=== PATIENT | female | born 1945 | race Caucasian/White ===

== ENCOUNTER → 2023-08-29 15:05 | Outpatient (REF) | payer MEDICARE, OTHER, SELFPAY | LOC: RAD 15:05 | PROVIDERS: ATTENDING PHYSICIAN Nurse Practitioner; FAMILY PHYSICIAN Family Medicine | DX: R35.0 Frequency of micturition (principal) | CPT/HCPCS: 76770; 76856 ==

== ENCOUNTER → 2023-08-31 10:23 | Outpatient (REF) | payer MEDICARE, OTHER, SELFPAY | LOC: DHCBS MAIN 10:23 | PROVIDERS: ATTENDING PHYSICIAN Internal Medicine Cardiovascular Disease; FAMILY PHYSICIAN Family Medicine | DX: I35.0 Nonrheumatic aortic (valve) stenosis (principal) | CPT/HCPCS: 93306 ==

== ENCOUNTER → 2024-02-06 10:06 | Outpatient (REF) | payer MEDICARE, OTHER, SELFPAY | LOC: RAD 10:06 | PROVIDERS: ATTENDING PHYSICIAN Physician Assistant Surgical; FAMILY PHYSICIAN Family Medicine; REFERRING PHYSICIAN Specialist | DX: M25.562 Pain in left knee (principal); Z96.652 Presence of left artificial knee joint | CPT/HCPCS: 78315; A9503 ==

== ENCOUNTER 2024-04-09 16:30 | Emergency (ER) | payer MEDICARE, OTHER, SELFPAY ==
[2024-04-09 16:39] VITALS: BP 112/92
--- NOTE | 2024-04-09 16:39 | ED.PDOC.TRB ---
ED Provider Triage
-
Patient seen by provider in Triage?: Seen in Triage
Attestation: A medical screening examination has been initiated by a qualified medical provider. Based on the assessment performed at this time, it has been determined that an emergent medical condition may exist and the patient has been informed
that further medical evaluation and possible additional diagnostic testing may be needed.
HPI: 78-year-old female with history of aortic stenosis and noncritical coronary artery disease presents for evaluation of chest pain that has been ongoing for the past 1 to 2 months. Reports intermittent episodes of exertional chest pain as well
as nocturnal chest pain that typically resolve with nitro use. Last had a cardiac cath in 2022 showing noncritical CAD and moderate to severe . States that her exertional dyspnea has not worsened since last year. No fevers or chills
GENERAL: Alert , in no apparent distress
EYE: No visual abnormalities.
NECK: Trachea midline
ENT: No visible abnormalities.
LUNGS: No acute respiratory distress
NEUROLOGICAL: Alert and oriented
SKIN: Skin intact. No visible changes.
MUSCULOSKELETAL: Moving extremities normally
PSYCH: Normal and appropriate interaction.
Assessment: Concern for symptoms related to coronary artery disease as opposed to a assess her symptoms have not worsened as far as dyspnea on exertion is concerned. EKG appears to be nonischemic. Will obtain cardiac labs and chest x-ray
This is a medical evaluation conducted in person to initiate diagnostic evaluation and provide initial therapeutics. Please see further documentation by the treating clinician.
[2024-04-09 16:53] LABS: % Basophils 0.4 % (0-2); % Eosinophils 3.4 % (0-6); % Immature Granulocytes 0.3 % (0-0.5); % Lymphocytes 30.3 % (20.5-51.1); % Monocytes 7.9 % (1.7-9.3); % Neutrophils 57.7 % (42.2-75.2); Absolute Eosinophils 0.3 10^3/uL (0-0.7); Absolute Lymphocytes 2.4 10^3/uL (1.2-3.4); Absolute Monocytes 0.6 10^3/uL (0.1-0.6); Absolute Neutrophils 4.6 10^3/uL (1.4-6.5); Hematocrit 32.9 % (37.0-47.0); Hemoglobin 11.4 g/dL (12.0-16.0); Mean Corp Hgb Conc. 34.7 g/dL (33.0-37.0); Mean Corpuscular Hgb 29.2 pg (27.0-31.0); Mean Corpuscular Volume 84.4 fL (81.0-99.0); Mean Platelet Volume 9.4 fL (7.4-10.4); Nucleated Red Blood Cells % 0 %; Platelet Count 240 10^3/uL (130-400); Red Cell Dist. Width 14.6 % (11.5-14.5); White Blood Cell Count 7.9 10^3/uL (4.8-10.8)
[2024-04-09 17:11] LABS: ALT (SGPT) 18 U/L (0-35); AST (SGOT) 26 U/L (14-36); Albumin 4.2 g/dl (3.5-5.0); Alkaline Phosphatase 81 U/L (38-126); Blood Urea Nitrogen 30 mg/dl (7-17); Calcium 9.1 mg/dl (8.4-10.2); Carbon Dioxide 23 mmol/L (22-30); Glucose 128 mg/dl (70-99); Total Bilirubin 0.5 mg/dl (0.2-1.3); Total Protein 6.4 g/dl (6.3-8.2); eGFR 42.35
[2024-04-09 17:17] LABS: Troponin I < 0.012 ng/ml
[2024-04-09 17:19] LABS: Chloride 105 mmol/L (98-107); Potassium 5.1 mmol/L (3.5-5.1); Sodium 141 mmol/L (135-145)
[2024-04-09 17:29] VITALS: BP 148/60
[2024-04-09 18:00] VITALS: BP 146/64
[2024-04-09 18:28] VITALS: BP 149/69
[2024-04-09 19:00] VITALS: BP 159/62
[2024-04-09 20:30] LABS: Troponin I < 0.012 ng/ml
--- NOTE | 2024-04-09 20:32 | ED.GENMED ---
History of Present Illness
General
Chief Complaint: Chest Pain
Source: patient
Time Seen by Provider: 04/09/24 18:11
History of Present Illness
History of Present Illness:
78-year-old female with past medical history of hypertension, hyperlipidemia, insulin-dependent diabetes, mild CAD presenting to the emergency department for evaluation of chest discomfort which has been occurring mostly at nighttime for the last
month, no change in symptoms today but states due to the continuous nature of the symptoms decided to contact her cardiology office but was unable to get an appointment quickly so it was recommended she come to the ER to be further evaluated.
Patient states that she sometimes will take a nitroglycerin and that this will often times help her pain. The pain is described to be mostly substernal, nonradiating, pressure-like with no other associated symptoms. Patient states that sometimes
the pain can last for 30 minutes but always resolves. She does note a history of aortic stenosis which is monitored with echocardiograms and last echocardiogram being earlier this year. Patient has no other concerns at this time and notes that at
present time she is chest pain-free
Past History
Past History
ED Past Medical History: CAD, GERD, HTN, Hypercholesterolemia, IDDM and Other (Kidney stones, Sleep apnea uses CPAP)
ED Past Surgical History: Bowel resection, Cholecystectomy, Gynecological (Tubal ligation, D&C), Orthopedic (Right and left total knee replacement, Left hip replacement), Urological (Lithotripsy) and Other (Cataracts)
Social History
Tobacco: Former smoker
Alcohol: Occasional
Drug: None
Personal:
Living: with family (Grandson)
Employment: Retired
Family History
Family History: Other (Noncontributory)
Review of Systems
Review of Systems
All Other Systems: ROS reviewed and negative except as documented in HPI and ROS
Phy Exam
Physical Exam
Physical Exam:
GENERAL: Alert , in no apparent distress
EYE: clear conjunctiva b/l
HEAD: NCAT
ENT: o/p clr, mmm.
CARDIAC: Regular rate and rhythm, systolic murmur right second intercostal space.
LUNGS: Clear breath sounds bilaterally, no acute respiratory distress, no wheezes/rales/rhonchi
ABDOMEN: Soft, without focal tenderness, no r/g, no cvat
NEUROLOGICAL: Alert and oriented
SKIN: Warm and dry, skin intact.
MUSCULOSKELETAL: No edema, well perfused.
PSYCH: Normal and appropriate interaction.
Scores
Heart Failure Risk
Heart Failure Risk Score: Not Applicable
Heart Score for Chest Pain Patients
STEMI patient?: No
History: Moderately Suspicious
ECG: Nonspecific Repolarization
Age: >/= 65 years
Risk Factors: 1 or 2 Risk Factors
Troponin: </= Normal Limit
Heart Score for Chest Pain Patients: 5
Heart Score Risk: 20.3% MACE over next 6 weeks
Withdrawal Assessment of Alcohol
Withdrawal Assessment Completed?: Not applicable
Course
Orders/Labs/Results
Orders:
Orders
04/09/24 16:32
EKG [Electrocardiogram (*1)] Urgent
Reason for Study: Chest Pain
04/09/24 16:33
EKG- Treatment ONCE
04/09/24 16:40
CR Chest - 2 Views Urgent
Comment:
Reason For Exam: CP/SOB
04/09/24 16:44
Complete Blood Count/With Diff Urgent
Comprehensive Metabolic Panel Urgent
Troponin I Urgent
04/09/24 20:01
Troponin I Urgent
Abnormal Lab Results
04/09/24
16:44
RBC 3.90 L 10^6/uL
(4.20-5.40)
Hgb 11.4 L g/dL
(12.0-16.0)
Hct 32.9 L %
(37.0-47.0)
RDW 14.6 H %
(11.5-14.5)
BUN 30 H mg/dl
(7-17)
Creatinine 1.3 H mg/dL
(0.6-1.0)
Glucose 128 H mg/dl
(70-99)
04/09/24 16:44
04/09/24 16:44
Vital Signs
Initial and Last Documented VS:
Initial Vital Signs
Temp Pulse Resp BP Pulse Ox
97.4 F 79 17 112/92 99
04/09/24 16:39 04/09/24 16:39 04/09/24 16:39 04/09/24 16:39 04/09/24 16:39
Last Documented Vital Signs
Temp Pulse Resp BP Pulse Ox
97.4 F 83 19 140/71 96
04/09/24 16:39 04/09/24 20:39 04/09/24 19:15 04/09/24 20:39 04/09/24 19:15
MDM/Problems Addressed
Differential Diagnosis Includes:
Angina, NSTEMI, minimal concern for a musculoskeletal etiology or GI referred symptoms, other than chest pain patient does not have any other symptoms to suggest PE
MDM/Problems Addressed:
78-year-old female presenting to the emergency department with intermittent chest pain that usually occurs at nighttime, can last up to 30 minutes, resolves either spontaneously or with sublingual nitroglycerin and no other symptoms. Patient
attempted to see her chiropractor assistant but was not able to be seen very quickly and was recommended to come to the ER for further evaluation. At present time she is chest pain-free. Labs are ordered from triage and patient has chronic kidney disease
which is unchanged and a negative troponin. EKG shows a left bundle branch block but this is unchanged from previous. I reviewed patient's echocardiogram which shows some aortic stenosis. She also had a cardiac catheterization done within the
last 2 years which showed 40% occlusion of the left main and mild to moderate disease of the mid LAD and circumflex which was unchanged from her angiogram in 2018.
Chronic conditions affecting care: CAD
*Radiology
Radiology exam reviewed: radiology read reviewed
*Pulse Oximetry
Patient hypoxic: no
*Critical Care Note
Total Time (30-74mins, 75-104mins- exclusive of procedures): Not Applicable
Data Reviewed
Review of Other/Old Records Reveals: Labs, Records and Testing
Source: patient and records
Patient Management
Escalation/DeEscalation of care consider admission/obs:
Patient had a -3-hour troponin. Given her history I did offer her hospital stay for further evaluation, cardiology consultation and testing based off of cardiology recommendations. Patient ultimately preferred to be discharged home and declines
admission. Will notify chest pain hotline to help expedite a close outpatient follow-up visit with cardiology. Patient aware of return precautions to the ER. Stable for discharge home.
ED Attending Note
-
Portions of this chart may have been created with voice recognition software.� Occasional wrong word or��sound alike� substitutions may have occurred due to the inherent limitations of voice recognition software.
Discharge Plan
Departure
Patient Disposition: Home (Routine Discharge)
Date of Disposition: 04/09/24
Time of Disposition: 20:32
Patient with high blood pressure during this ER visit?: Yes
Discharge Problem:
Chest pain
Instructions: Chest Pain DCA Follow Up
Prescriptions:
No Action
Jardiance 10 MG tablet
10 mg PO DAILY
atorvastatin 20 MG tablet
20 mg PO DAILY
trazodone 100 MG tablet
200 mg PO HS
bupropion HCl 300 MG tablet extended release 24 hr
300 mg PO DAILY
ascorbic acid (vitamin C) [Vitamin C] 500 MG tablet
1,000 mg PO DAILY
omeprazole 20 MG capsule,delayed release(DR/EC)
40 mg PO DAILY
Aspirin Low-Strength
81 mg PO DAILY
Creon 36,000-114,000- 180,000 unit capsule,delayed release(DR/EC)
2 cap PO AC
diphenoxylate-atropine 2.5-0.025 mg tablet
1 tab PO QID PRN (Reason: diarrhea)
lorazepam 0.5 mg tablet
0.5 mg PO DAILY PRN (Reason: anxiety)
losartan 25 mg Tablet
25 mg PO DAILY Qty: 30 0RF
metoprolol succinate 25 mg Tablet Extended Release 24 Hr
25 mg PO BID Qty: 60 0RF
Referrals:
Jim Avalos MD [Family Provider] -
Interventions
Interventions:
*Risk Screen - Suicide Last Done: 04/09/24 16:40
*General Assessment Last Done: 04/09/24 16:40
*Neglect/Abuse Screening Last Done: 04/09/24 16:40
ED- Fall Risk Assessment Last Done: 04/09/24 17:43
*ED COVID-19 Vaccine History Last Done: 04/09/24 16:40
*Nursing Disposition Last Done: 04/09/24 20:39
ED- Cardiac Assessment Last Done: 04/09/24 17:43
Discharge Date and Time
Discharge Date/Time: 04/09/24 20:40
Print Language: DUTCH
[2024-04-09 20:39] VITALS: BP 140/71
== END 2024-04-09 20:40 | disposition home or self-care (01) ==
LOC: EMR 16:30
PROVIDERS: Physician Assistant; Physician Assistant Medical; EMERGENCY PHYSICIAN Emergency Medicine; FAMILY PHYSICIAN Family Medicine
DX: R07.89 Other chest pain (principal); E11.22 Type 2 diabetes mellitus with diabetic chronic kidney disease; I12.9 Hypertensive chronic kidney disease with stage 1 through stage 4 chronic kidney disease, or unspecified chronic kidney disease; N18.9 Chronic kidney disease, unspecified; E78.00 Pure hypercholesterolemia, unspecified; I25.10 Atherosclerotic heart disease of native coronary artery without angina pectoris; Z87.891 Personal history of nicotine dependence; Z79.4 Long term (current) use of insulin; K21.9 Gastro-esophageal reflux disease without esophagitis; G47.30 Sleep apnea, unspecified
CPT/HCPCS: 99285; 71046; 80053; 84484; 85025; 93005

== ENCOUNTER 2024-04-17 01:15 | Inpatient (IN) | payer MEDICARE, OTHER, SELFPAY ==
[2024-04-16 22:41] VITALS: BP 181/164
[2024-04-16 22:53] VITALS: BP 187/98
[2024-04-16 23:02] VITALS: BP 161/117
[2024-04-16 23:05] VITALS: BP 137/80
[2024-04-16 23:07] LABS: % Basophils 0.4 % (0-2); % Eosinophils 3.2 % (0-6); % Immature Granulocytes 0.5 % (0-0.5); % Lymphocytes 37.2 % (20.5-51.1); % Monocytes 7.7 % (1.7-9.3); Absolute Eosinophils 0.3 10^3/uL (0-0.7); Absolute Lymphocytes 3.1 10^3/uL (1.2-3.4); Absolute Monocytes 0.6 10^3/uL (0.1-0.6); Absolute Neutrophils 4.2 10^3/uL (1.4-6.5); Hemoglobin 12.8 g/dL (12.0-16.0); Mean Corp Hgb Conc. 34.6 g/dL (33.0-37.0); Mean Corpuscular Hgb 28.9 pg (27.0-31.0); Mean Corpuscular Volume 83.5 fL (81.0-99.0); Mean Platelet Volume 9.7 fL (7.4-10.4); Nucleated Red Blood Cells % 0 %; Platelet Count 287 10^3/uL (130-400); Red Blood Cell Count 4.43 10^6/uL (4.20-5.40); Red Cell Dist. Width 14.1 % (11.5-14.5); White Blood Cell Count 8.2 10^3/uL (4.8-10.8)
[2024-04-16 23:15] VITALS: BP 157/67
[2024-04-16 23:15] LABS: INR 1.06; PT 13.6 Sec (11.4-14.6)
[2024-04-16 23:21] VITALS: BP 164/91
[2024-04-16 23:25] LABS: ALT (SGPT) 18 U/L (0-35); AST (SGOT) 28 U/L (14-36); Albumin 4.7 g/dl (3.5-5.0); Alkaline Phosphatase 140 U/L (38-126); Blood Urea Nitrogen 33 mg/dl (7-17); Calcium 9.6 mg/dl (8.4-10.2); Carbon Dioxide 23 mmol/L (22-30); Chloride 103 mmol/L (98-107); Estimated Creatinine Clearance 32 ml/min; Glucose 174 mg/dl (70-99); Potassium 4.4 mmol/L (3.5-5.1); Sodium 140 mmol/L (135-145); Total Bilirubin 0.4 mg/dl (0.2-1.3); Total Protein 7.2 g/dl (6.3-8.2); eGFR 38.75
--- NOTE | 2024-04-16 23:25 | ED.GENMED ---
History of Present Illness
General
Chief Complaint: Chest Pain
Source: patient and family (Son, brother at bedside)
Exam Limitations: clinical condition
Time Seen by Provider: 04/16/24 23:10
Nursing documentation reviewed up to this point in time: agreed with
History of Present Illness
History of Present Illness:
Pleasant 78-year-old female presents to the emergency department with severe 8 out of 10 chest pain. She states that she has been having chest pain off and on all day. At its worst it was 10 out of 10. Tonight she was watching television and told
her son that her pain was 10 out of 10. She did take some nitroglycerin which brought it down to 8 out of 10. Her son drove her to the emergency department as she did not want to take an ambulance. Patient states that she was in the emergency
department 2 days ago for chest pain. She did follow-up with cardiology and had an appointment for further testing scheduled for the beginning of April. Upon arrival I was summoned to the room. EKG was done immediately. Initial EKG showed
sinus tachycardia rate of 111 with a left bundle branch block. When compared with previous EKG dated April 09, 2024, there is slight morphology changes in V3 and V4. Given the left bundle branch block, patient's symptomatic presentation, I
called interventional cardiology. I spoke with Dr. Anthony Parker, and Carson texted him the EKGs. After reviewing the EKGs and our discussion he recommended we call a STEMI alert. At 2250 a STEMI alert was called. At this time patient's pain was
still 8 out of 10. She received a full baby aspirin, 180 mg of Brilinta, and 5000 mg of heparin. Her blood pressure was still elevated so she received 1 sublingual nitroglycerin which initially brought her pain to 7 out of 10. Several minutes
later her pain subsided and was 0 out of 10. She states that after taking nitroglycerin, her pain typically subsides for approximately 10 minutes and then returns. Several minutes later, Dr. Parker arrived in the emergency department. Patient was
seen by him. She still had 0 out of 10 pain but as he was leaving to take her to the [facility] she states that her pain was 6 out of 10.
Past History
Past History
ED Past Medical History: CAD, GERD, HTN, Hypercholesterolemia, IDDM and Other (Kidney stones, Sleep apnea uses CPAP)
ED Past Surgical History: Bowel resection, Cholecystectomy, Gynecological (Tubal ligation, D&C), Orthopedic (Right and left total knee replacement, Left hip replacement), Urological (Lithotripsy) and Other (Cataracts)
Social History
Tobacco: Former smoker
Alcohol: Occasional
Drug: None
Personal:
Living: with family (Grandson)
Employment: Retired
Family History
Family History: Other (Noncontributory)
Review of Systems
Review of Systems
Allergies reviewed?: Yes
Other source history: family
All Other Systems: ROS reviewed and negative except as documented in HPI and ROS
Constitutional: Reports no symptoms
EENT: Reports no symptoms
Respiratory: Reports no symptoms
Cardiac: Reports chest pain and diaphoresis
ABD/GI: Reports no symptoms
: Reports no symptoms
Musculoskeletal: Reports no symptoms
Skin: Reports no symptoms
Neurological: Reports no symptoms
Endocrine: Reports no symptoms
Hematologic/Lymphatic: Reports no symptoms
Psychiatric: Reports anxiety
Phy Exam
General Physical Exam
General Presentation: severe distress
General age: appears stated age
General Skin: warm and diaphoretic
General Habitus: normal and elderly
General Mental: alert, anxious and tearful
General Hydration: appears well hydrated
ENT Exam
ENT Exam: EOMI, pharynx normal, neck supple and normocephalic
Eye Exam
Eye Exam: PERRL, cornea clear and conjunctiva normal
Cardiovascular Exam
Cardiovascular Exam: tachycardia
Pulmonary Exam
Pulmonary Exam: no respiratory distress
Oxygen Status: oxygen 2 liters via NC
Cough: no cough
Breath Sounds: Crackles: generalized
Gastrointestinal Exam
Gastrointestinal Exam: normal bowel sounds, non tender, soft, no organomegaly, no pulsatile mass and non distended
Neurological Exam
Neurological Exam: alert and oriented x3
Musculoskeletal Exam
Musculoskeletal Exam: full ROM and no edema
Skin Exam
Skin Exam: normal color, no rash and diaphoresis
Psychiatric Exam
Psychiatric Exam: normal mood/affect
Scores
Heart Score for Chest Pain Patients
STEMI patient?: Yes
Course
Orders/Labs/Results
Orders:
Orders
04/16/24 22:39
Electrocardiogram (*1) Urgent
Reason for Study: Chest Pain
Cardiac Monitoring- Treatment ONCE
EKG- Treatment ONCE
IV Insert/Care/Rem.- Treatment PRN
O2 Therapy [RESP] Urgent
Titrate/Wean O2 to maintain O2 sat greater than (%): 90
Special Instructions: Maintain sats >/=90%
Pulse Ox/spot Check [RESP] Urgent
Quantity: 1
Special Instructions: ON ROOM AIR
04/16/24 22:53
Complete Blood Count/With Diff Urgent
Comprehensive Metabolic Panel Urgent
Protime/PTT Urgent
Troponin I Urgent
04/16/24 22:58
CR Chest Portable - 1 View Urgent
Comment:
Reason For Exam: CP
Reason Study Needs to be Portable: Unable to Transport
04/16/24 23:42
Ticagrelor [Brilinta] 180 mg .ROUTE .STK-MED ONE
04/16/24 23:43
Aspirin Chewable [Low Strength Aspirin] 324 mg .ROUTE .STK-MED ONE
Heparin 5,000 units .ROUTE .STK-MED ONE
04/17/24 01:13
PTT Urgent
Comment: Obtain baseline before beginning heparin infusion if not already collected
Heparin Protocol- PTT Orders As Directed
PTT per Heparin protocol: -Obtain CBC and baseline PTT - if not already collected.
-Obtain PTT 6 hours from start of infusion. Then, every 6 hours until 2 consecutive
PTT's are therapeutic. Then, PTT Daily.
-With each rate change, obtain PTT every 6 hours until 2 consecutive PTT's are
therapeutic. Then, PTT Daily.
Notify MD As Directed
Notify physician if: PTT is greater than or equal to 200.
04/17/24 06:00
BMP [Basic Metabolic Panel] IN AM
CBC/No Diff [Complete Blood Count/No Diff] IN AM
Glycohemoglobin (HgbA1c) IN AM
04/18/24 06:00
BMP [Basic Metabolic Panel] IN AM
04/19/24 06:00
BMP [Basic Metabolic Panel] IN AM
Complete Blood Count/No Diff Q2D
Comment: Notify MD if platelet count is <130,000 or decreases by 50% from baseline
04/21/24 06:00
Complete Blood Count/No Diff Q2D
Comment: Notify MD if platelet count is <130,000 or decreases by 50% from baseline
04/23/24 06:00
Complete Blood Count/No Diff Q2D
Comment: Notify MD if platelet count is <130,000 or decreases by 50% from baseline
04/25/24 06:00
Complete Blood Count/No Diff Q2D
Comment: Notify MD if platelet count is <130,000 or decreases by 50% from baseline
04/27/24 06:00
Complete Blood Count/No Diff Q2D
Comment: Notify MD if platelet count is <130,000 or decreases by 50% from baseline
04/29/24 06:00
Complete Blood Count/No Diff Q2D
Comment: Notify MD if platelet count is <130,000 or decreases by 50% from baseline
05/01/24 06:00
Complete Blood Count/No Diff Q2D
Comment: Notify MD if platelet count is <130,000 or decreases by 50% from baseline
05/03/24 06:00
Complete Blood Count/No Diff Q2D
Comment: Notify MD if platelet count is <130,000 or decreases by 50% from baseline
Abnormal Lab Results
04/16/24
22:53
APTT > 200 H* Sec
(23.4-35.0)
BUN 33 H mg/dl
(7-17)
Creatinine 1.4 H mg/dL
(0.6-1.0)
Glucose 174 H mg/dl
(70-99)
Alkaline Phosphatase 140 H U/L
(38-126)
04/16/24 22:53
04/16/24 22:53
Vital Signs
Initial and Last Documented VS:
Initial Vital Signs
Temp Pulse Resp BP Pulse Ox
97.8 F 108 26 181/164 94
04/16/24 22:41 04/16/24 22:41 04/16/24 22:41 04/16/24 22:41 04/16/24 22:41
Last Documented Vital Signs
Temp Pulse Resp BP Pulse Ox
97.8 F 108 20 164/91 99
04/16/24 22:41 04/16/24 23:21 04/16/24 23:21 04/16/24 23:21 04/16/24 23:15
*Critical Care Note
Total Time (30-74mins, 75-104mins- exclusive of procedures): 40
Update Note
Update Note:
Vital signs are stable. Patient not hypoxic
Nursing note reviewed. I agree with nursing documentation up to this point in time.
Home Meds and allergies reviewed.
NUMBER AND COMPLEXITY OF PROBLEMS ADDRESSED AT THE ENCOUNTER
� Chronic conditions affecting care: Former smoker, hypertension, hyperlipidemia, allergy to lisinopril, GERD
� Acute Exacerbation and/or Progression of Chronic Illness:
� Differential Diagnosis includes: STEMI, ACS, unstable angina, musculoskeletal chest pain
AMOUNT AND/OR COMPLEXITY OF DATA TO BE REVIEWED AND ANALYZED
I performed an independent evaluation of the following and my interpretation is:
EKG: See above
CT:
X-rays: X-ray shows pulmonary vascular congestion.
Ultrasound:
Laboratory Studies: Initial troponin is negative
Other:
Review of other/old records: Catheterization report from 02/06/2023
CONCLUSIONS
1. Moderate to severe aortic stenosis with a mean aortic valve gradient of 26 mmHg and estimated aortic valve area 0.92 cm�
2. Moderate noncritical coronary artery disease with 40% ostial left main stenosis and moderate coronary disease noted in the mid LAD and ostial circumflex which appears angiographically stable when compared to 2018 angiogram
RECOMMENDATIONS
1. Continue medical management
2. Will need repeat echocardiogram in 6-12 months. Could consider TAVR vs surgical evaluation if symptoms persist / worsen
Clinical information was obtained by an independent historian: Son and brother present at the bedside
Prescriptions/Medications Considered but not given:
Further testing considered but not performed:
RISK OF COMPLICATIONS AND/OR MORBIDITY OR MORTALITY OF PATIENT MANAGEMENT
Social determinants of health affecting care: Good Social Support. Patient currently living with son. Son states that she came to live with him and his about a month ago.
Discussion with other providers: Dr. Anthony Parker
Escalation of care including admission/observation vs risk of discharge considered:
CRITICAL CARE NOTE:
Critical care statement: A total of 40 minutes of critical care time was provided for this patient. This time is separate from time utilized to perform the aforementioned documented procedures. Aggregate critical care time includes only time
during which I was engaged in work directly related to the patient's care, as described above, whether at the bedside or elsewhere in the Emergency Department.
Total Time (exclusive of procedures):40
Update:
ED Attending Note
-
Portions of this chart may have been created with voice recognition software.� Occasional wrong word or��sound alike� substitutions may have occurred due to the inherent limitations of voice recognition software.
Discharge Plan
Departure
Patient Disposition: [facility] TE[facility]
Date of Disposition: 04/16/24
Time of Disposition: 23:34
Admit to: electroplating laborer
Presentation/result/management discussed w/ accepting MD/DO: Anthony Parker
Discharge Problem:
Anginal equivalent, Left bundle branch block (LBBB), Chest pain, HTN (hypertension)
Interventions
Interventions:
*Risk Screen - Suicide Last Done: 04/16/24 22:41
*General Assessment Last Done: 04/16/24 22:41
*Neglect/Abuse Screening Last Done: 04/16/24 22:50
*Nursing Disposition Last Done: 04/16/24 23:35
ED- Cardiac Assessment Last Done: 04/16/24 22:50
Discharge Date and Time
Discharge Date/Time: 04/16/24 23:35
[2024-04-16 23:30] LABS: Troponin I < 0.012 ng/ml
[2024-04-16 23:54] LABS: APTT > 200 Sec (23.4-35.0)
[2024-04-17] VITALS (21 sets, daily range): BP systolic 81–165; BP diastolic 40–118; BMI 29.4
--- NOTE | 2024-04-17 01:08 | CON.CAR ---
Consultation
Consultation Request
Date/Time Consultation Requested: 10:47 PM
Date/Time Consultation Performed: 10:47 PM
Requesting Provider: Cheng Anand DO
Performing Provider: Anthony Granado MD, PhD
Reason for Consultation: chest pain, ACS
Medical History
-
Chief Complaint: chest pain
History of Present Illness:
Ms. Souza is a 78 year old woman with history of non-obstructive coronary artery disease (cath 01/2023; 40% LM in left dominant circulation, [facility]), moderate-severe normal flow low gradient (echo 08/2023, peak/mean 46/26, CARMEN 0.9, DVI 0.3, SVI
41, EF 61), HTN, HLD, DM, chronic LBBB, and apical septal LV hypertrophy. She presented with progressively worsening chest pain over several weeks, which became severe on the night of presentation.
She has a long history of chest pain dating back to 2016. At that time nuclear stress test showed a small fixed mid anterior defect and no ischemia. In January 2023 she had acute onset severe chest pain at rest, presented to the ED with NSTEMI with
mildly elevated troponin (0.048 peak). Chest pain improved with NTG in the ED. Cath at that time demonstrate 40% left main stenosis in a left dominant system. In November 2023 she was seen in clinic and reported typical anginal symptoms. Anti-anginals
were increased and cath considered. She presented to the ED 04/09/2024 with worsening chest pain and was ruled out for LA and in follow up clinic visit plan was made for outpatient stress test. She continued to experience worsening chest pain
symptoms, and on the night of presentation had severe pain with radiation to the arm, prompting her to present to the ED. EKG showed stable LBBB and initial troponin was negative. She was hypertension and had initial symptom improvement with SLN.
Give the severity of typical nature of her symptoms with known LM disease, and inability to rule out ischemia on ECG given chronic LBBB, she was activated as a STEMI and brought emergently to the clinical laboratory science professor. She was given ASA 324, ticagrelor 180, and
heparin 5000 U per protocol.
In the cath labs she was in severe pain and hypertensive in sinus tachycardia. She had some improvement in symptoms with nitro gtt and blood pressure control. She was mildly hypoxic and started on 3L NC. LVEDP was elevated ~30 mmHg and she was given
lasix 40 IV. Coronary angiography was notable for severe pressure dampening on engagement of the left main, with immediate and rapid escalation of symptoms and hypotension. Limited coronary angiography was obtained with rapid catheter disengagement
which demonstrated lack of dye reflux from the ostial LM, suggestive of disease progression of the ostial LM stenosis since last cath. There was no obvious culprit stenosis or progression of disease in the branch vessels. Given the high risk for
ischemic arrest with attempted PCI of the LM, the decision was made to attempt management of her ischemic symptoms with nitro gtt and balloon pump to allow bridge to decision on subsequent surgical revascularization (+AVR/MVR) vs. staged high risk
PCI with surgical backup and mechanical support. Fortunately, the patient's symptoms rapidly improved with these measures and she was taken to the ICU for further management.
Past Medical History
Past Medical History: Other (per HPI)
Social History
Tobacco: Former Smoker
Alcohol: Occasional
Drug: None
Personal:
Living: With Family
Employment: Retired
Family History
Family History: Reviewed & Not Pertinent
Allergies / Home Medications
Allergy/AdvReac Type Severity Reaction Status Date / Time
lisinopril Allergy COUGH Verified 04/16/24 22:41
hayfever Allergy sneezing Uncoded 04/16/24 22:41
�Medication �Instructions �Recorded �Confirmed �Type
empagliflozin 10 mg tablet 10 mg PO DAILY Diabetes 12/22/17 02/02/23 History
(Jardiance)
atorvastatin 20 mg tablet 20 mg PO DAILY High cholesterol 07/06/21 02/02/23 History
bupropion HCl 300 mg 24 hr tablet, 300 mg PO DAILY Mental Health 07/06/21 02/02/23 History
extended release
trazodone 100 mg tablet 200 mg PO HS Mental Health/sleep 07/06/21 02/02/23 History
ascorbic acid (vitamin C) 500 mg 1,000 mg PO DAILY Supplement 08/24/21 02/02/23 History
tablet (Vitamin C)
omeprazole 20 mg capsule,delayed 40 mg PO DAILY Gastrointestinal 08/24/21 02/02/23 History
release issue
Aspirin Low-Strength 81 mg PO DAILY Blood Clot 02/02/23 02/02/23 History
Prevention/Tx
yopgky-fstuntck-gkuhzpl 2 cap PO AC Gastrointestinal Issue 02/06/23 02/06/23 History
36,000-114,000-180,000 unit
capsule,delay rel (Creon)
diphenoxylate-atropine 2.5 1 tab PO QID PRN diarrhea 02/07/23 02/07/23 History
mg-0.025 mg tablet
lorazepam 0.5 mg tablet 0.5 mg PO DAILY PRN anxiety 02/07/23 02/07/23 History
losartan 25 mg tablet 25 mg PO DAILY #30 tabs 02/08/23 Rx
metoprolol succinate 25 mg 25 mg PO BID #60 tabs 02/08/23 Rx
tablet,extended release 24 hr
Review of Systems
-
All other systems: Negative unless noted
Physical Exam
Vital Signs
Temp Pulse Resp BP Pulse Ox
36.6 C 108 20 164/91 99
04/16/24 22:41 04/16/24 23:21 04/16/24 23:21 04/16/24 23:21 04/16/24 23:15
Lab Results
04/16/24 22:53
04/16/24 22:53
Troponin I < 0.012 ng/ml 04/16/24 22:53
Physical Exam
General: Other (severe distress)
Respiratory: Wheezes and Other (increased work of breathing)
Cardiac: S1/S2 and Regular Rhythm
Skin: Warm
Neuro: AO x 3
Impression / Plan
-
78 year old woman with moderate-severe , moderate-severe MR, 40% ostial LM disease, HTN, HLD, DM, presenting with severe anginal chest pain and found to have progression of ostial LM disease s/p placement of IABP.
Emergent angiography demonstrated severe dampening of pressure, severe hypotension and immediate symptom escalation anytime the LM was engaged, suggesting progression of LM disease to severe. Percutaneous coronary intervention on this degree of left
main disease, in a left dominant system, and with concomitant severe , would be extremely high risk for ischemic arrest. Given her rapid improvement with nitro drip and balloon pump, plan will be to evaluate her for surgical revascularization,
which would also allow for AVR and mitral valve repair/replacement. Should she be deemed not a surgical candidate or refuse, she could alternatively undergo high risk osital LM PCI with Impella support and surgical backup, with plan for staged TAVR.
--> continue ASA 81
--> NO further P2Y12 (received ticag 180 in ED @2300 04/16)
--> continue heparin drip
--> titrate metoprolol to goal HR < 80
--> NO RASS blockade given pending surgery, hold home losartan
--> hold home Jardiance, SSI while in house
--> high intensity statin (eventual goal <55)
--> CT surgery consult
--> cont. IABP on 1:1
Data Reviewed
-
EKG: Tracing Personally Visualized and interpreted, Report Reviewed by me and Discussed with Physician
Radiology: Image Personally Visualized and interpreted and Report Reviewed by me
Ultrasound: Report Reviewed by me
Medical Tests (Nuc Med, Echo etc): Report Reviewed by me
Labs: Labs Reviewed by me, Discussed with Physician, Discussed with Nurse, Discussed with Patient and Discussed with Family
Old Records: Reviewed
--- NOTE | 2024-04-17 02:00 | PTCARENOTE ---
Assumed care of patient at 0115. Patient transferred from minilab operator following unsuccessful stenting attempt and successful IABP placement. Patient is AOx4, follows commands appropriately, moves all extremities. Lung sounds are diminished in the
bases, saO2 96% on 5L via NC. Heart sounds have a regular rate and rhythm, patient is SR with BBB on the monitor, murmur is audible on auscultation, patient has 1:1 IABP settings, +pulses, no observable edema. Patient has active BS in all four
quadrants, patient placed on PW given bedrest status no successful void at this time. Patient has L AC 18G receiving nitro gtt at 40mcg. There is a R groin puncture with 4x4 dressing with sheath that has IABP device, and a R wrist puncture from
cardiac cath with TR band that is dry and intact.
--- NOTE | 2024-04-17 02:05 | PTCARENOTE ---
Patient with elevated augment BPs. Barrel Burner notified. Advised to maintain augmented MAP<100. Patient asymptomatic despite elevated pressure.
--- NOTE | 2024-04-17 02:09 | ITS.CL.PN ---
Grill Prep Cook - Procedure Note
Procedure
Procedure Note:
CARDIAC CATHETERIZATION REPORT
Date of Procedure: 04/16/24
Referring: Dr. Cheng Anand DO
INDICATION: ACS, chest pain
PROCEDURE:
1. Left heart catheterization
2. Coronary angiography
3. Intraaortic balloon pump insertion
ACCESS:
6 Guyanese right radial artery
8 Guyanese right femoral artery
CATHETERS:
1. 6 Guyanese JR4 diagnostic
2. 6 Guyanese EBU3.5 guide
3. 5 Guyanese JL3.5 diagnostic
HEMODYNAMIC DATA
LV 170/25 (EDP ~30) mmHg
AO 142/87
CORONARY ANGIOGRAPHY
Dominance: left
LM: there is severe pressure dampening with severe symptomatic hypotension within seconds of engagement despite catheter adjustment suggestive of severe ostial LM disease. This occurred with both a 6F EBU 3.5 guide catheter and 5F JL 3.5 diagnostic
catheter. The mid-distal left main dose not have significant disease.
LAD: gives rise to a large high rising diagonal branch which bifurcates and several smaller diagonal branches before wrapping around the apex. There is a 40% stenosis in the lower branch of the large diagonal and otherwise mild disease.
LCx: dominant vessel giving rise to a LPL branch and LPDA. There is stable 30% ostial disease and mild non-obstructive disease otherwise.
RCA: small and non-dominant without obstructive disease
INTRA-AORTIC BALLOON PUMP
Under fluoroscopic and ultrasound guidance, micropuncture kit was used to gain access to the R SAND ANALYST. Mid femoral head height was confirmed on fluoroscopy. There was difficulty inserting the balloon pump sheath over the supplied IABP compatible wire
even after tract dilation. The micropuncture kit was used to place an Amplatz ExtraStiff wire in the proximal aorta, overwhich the IABP sheath inserted easily. The ExtraStiff was exchanged for the IABP wire and the IABP advanced with the proximal
tip visualized above the radha. Therapy was initiated at 1:1 with appropriate augmented pressure noted. The sheath was secured with stat locks.
Closure Device: TR band
Radiation (mGy): 485.37
DAP (cm2.Gy): 38.5275
Fluoroscopy time (minutes): 6.4
CONCLUSIONS
1. Severe ostial left main disease with no other obstructive coronary artery disease in a left dominant system
2. Severely elevated LVEDP and systemic hypertension
3. Peak-peak gradient across the aortic valve of ~25-30 mm Hg consistent with known moderate-severe
4. Successful placement of IABP via the right groin
RECOMMENDATIONS:
1. Expectant management of cath via right radial approach with TR band
2. Management of severe ostial left main stenosis with IABP and nitro gtt, asa, statin, metoprolol; avoidance of RASS agents, SGLT2i, and P2Y12
3. Surgical consult to consider open CABG/AVR+/-MVR vs. consideration for high risk Impella-supported PCI of LM with interval TAVR
Copy to: Dr. Rylan Kennedy MD
Signed: Dr. Anthony Granado MD, PhD
--- NOTE | 2024-04-17 03:00 | PTCARENOTE ---
Patient reassessed. VSS. Remains SR with BBB on the monitor. Hygiene care provided. PW changed. AM labs obtained. Patient is stable.
--- NOTE | 2024-04-17 03:00 | PTCARENOTE ---
Patient with large successful void. CT PA notified. No Olmos indicated for urinary retention at this time.
[2024-04-17 03:09] LABS: APTT 25.6 Sec (23.4-35.0)
[2024-04-17 03:16] LABS: Urine Albumin Negative (Neg - Trace); Urine Bilirubin Negative (Negative); Urine Character Clear (Clear); Urine Color Yellow; Urine Glucose 1+ (Negative); Urine Ketone Negative (Negative); Urine Leukocyte Trace (Negative); Urine Nitrite Positive (Negative); Urine Occult Blood 2+ (Negative); Urine Urobilinogen Negative (Neg - 1+)
[2024-04-17 03:23] LABS: Urine Bacteria Moderate (Negative); Urine Red Blood Cell None Seen /HPF (0-2)
[2024-04-17 03:26] LABS: Blood Urea Nitrogen 33 mg/dl (7-17); Calcium 9.2 mg/dl (8.4-10.2); Carbon Dioxide 22 mmol/L (22-30); Chloride 104 mmol/L (98-107); Estimated Creatinine Clearance 32 ml/min; Glucose 220 mg/dl (70-99); Potassium 4.2 mmol/L (3.5-5.1); Sodium 141 mmol/L (135-145); eGFR 38.75
[2024-04-17] MEDS: HEPARIN 25000 UNITS/250 ML IV (03:37)
--- NOTE | 2024-04-17 03:40 | PTCARENOTE ---
Patient difficult to establish IV access and draw labs from. Contacted VAT for assistance. Additional IV site placed in L FA. PTT results obtained. Heparin gtt initiated at 900 units. Next PTT scheduled at 0935
[2024-04-17 03:43] LABS: Troponin I 0.079 ng/ml
[2024-04-17 04:36] LABS: Hemoglobin 11.1 g/dL (12.0-16.0); Mean Corp Hgb Conc. 34.7 g/dL (33.0-37.0); Mean Corpuscular Hgb 30.1 pg (27.0-31.0); Mean Corpuscular Volume 86.7 fL (81.0-99.0); Mean Platelet Volume 9.8 fL (7.4-10.4); Platelet Count 231 10^3/uL (130-400); Red Blood Cell Count 3.69 10^6/uL (4.20-5.40); Red Cell Dist. Width 13.8 % (11.5-14.5); White Blood Cell Count 8.5 10^3/uL (4.8-10.8)
[2024-04-17] MEDS: TYLENOL 650 MG PO ×3 (06:35→20:19)
--- NOTE | 2024-04-17 07:35 | W.PN.CARDCBS ---
Addendum entered and electronically signed by Meghana Lawrence PA-C 04/17/24 13:39:
correction to below: felt to be a high risk NSTEMI resulting in urgent mechanical laboratory technician
Addendum entered and electronically signed by Rylan Kennedy MD 04/17/24 11:54:
I saw and examined the patient.
The CLIENT SERVICES DIRECTOR or PA's note was reviewed and I agree with the note.
Comment: General: Well developed, well nourished in NAD.
Neck: Supple, no JVD, HJR, carotids +2 B/L, no bruits bilaterally.
Heart: Non displaced PMI, RRR, 2/6 basal systolic murmur, no S3, S4, no rubs.
Lungs: Scattered rhonchi
Abdomen: Normal bowel sounds, soft, non-tender, non-distended.
Extremities: No clubbing, cyanosis or edema bilaterally.
Neuro: Grossly nonfocal, awake, alert and oriented x3.
She denies chest pain. She remains on balloon pump. Await CT surgery evaluation. Will continue IV Lasix for acute CHF. Check echocardiogram. Options are CABG for left main disease with AVR and possible mitral valve replacement/repair versus
Impella guided left main stent with TAVR and hopefully MR will improve with treatment of aortic valve disease. Will see if patient will be able to wean from balloon pump today but will continue balloon pump for now until decision has been made.
Wean IV nitroglycerin as possible. Add hydralazine. Patient's son was updated in detail. Discussed with CT surgery as well as interventional cardiology and nursing at bedside. Critical care time 55 minutes so far.
Original Note:
Today's Communication / Plan
-
remains with impella
continue IV heparin
wean IV nitro as able
continue asa, statin, BB
consider additional IV lasix
CT surgery evaluation
Impression / Plan
-
78 year old woman with moderate-severe , moderate-severe MR, 40% ostial LM disease, HTN, HLD, DM, presenting with severe anginal chest pain and found to have progression of ostial LM disease s/p placement of IABP.
Primary Screen Printing Inspector: Dr. Kennedy
Assessment:
Presentation with chest pain
ACS, suspected STEMI
Urgent cath 04/17/2024 with progression of previous 40% left main disease
Chronic left bundle branch block
History of apical septal hypertrophy
Moderate by echo 08/2023
Moderate to severe MR by echo 08/2023
HTN
HLD
DM2
History of gangrenous colon s/p colectomy 2018
OA
Cath 04/17/24: Severe ostial left main disease with no obvious addtional obstructive coronary disease, severely elevated LVEDP and systemic hypertension, peak to peak gradient across aortic valve of 25 to 30 mmHg consistent with moderate to severe
, successful placement of IABP in right groin
Plan:
-Patient presented with chest pain. Given tachycardia, ongoing chest discomfort and chronic left bundle branch block, patient was taken urgently to [facility] as a STEMI. Was noted to have severe ostial left main disease without additional CAD
noted, severely elevated LVEDP and moderate to severe . Underwent IABP placement
-Currently IABP one-to-one
-Continue IV heparin
-She is on IV nitro gtt at 110. Continue to keep MAP less than 100. Currently chest pain-free. She does report headache, will attempt to wean as able
-Continue low-dose Lopressor. Blood pressure stable.
-Continue aspirin. She did receive dose of Brilinta in ER 2300 on 04/16, hold further.
-Check lipids. continue high intensity statin therapy
-LVEDP significantly elevated at time of cath. CXR with interstitial edema. check proBNP. s/p IV lasix 40mg post cath. Cr 1.4. consider for standing dose IV lasix 40mg daily.
-holding OP losartan, jardiance
-CT surgery consultation to eval for CABG/AVR vs high risk L main PCI with impella support and TAVR
-Full code
-d/w nursing
Progress Note - Screen Printing Inspector
Subjective
Date of Service: April 17, 2024
No chest pain. Reports headache
Objective
Labs:
04/17/24 04:19
04/17/24 02:35
Labs
Hgb 11.1 g/dL (12.0-16.0) L 04/17/24 04:19
Hct 32.0 % (37.0-47.0) L 04/17/24 04:19
Plt Count 231 10^3/uL (130-400) 04/17/24 04:19
PT 13.6 Sec (11.4-14.6) 04/16/24 22:53
INR 1.06 04/16/24 22:53
APTT 25.6 Sec (23.4-35.0) 04/17/24 02:35
Sodium 141 mmol/L (135-145) 04/17/24 02:35
Potassium 4.2 mmol/L (3.5-5.1) 04/17/24 02:35
BUN 33 mg/dl (7-17) H 04/17/24 02:35
Creatinine 1.4 mg/dL (0.6-1.0) H 04/17/24 02:35
Glucose 220 mg/dl (70-99) H 04/17/24 02:35
Troponins
04/16/24 04/17/24
22:53 02:35
Troponin I < 0.012 0.079 H* D
Vital Signs and I&O:
Vital Signs
Temp Pulse Resp BP Pulse Ox
97.8 F 87 18 165/118 96
04/17/24 03:00 04/17/24 05:30 04/17/24 05:30 04/17/24 02:00 04/17/24 05:30
Vital Signs
Temp Pulse Resp BP Pulse Ox
97.8 F 87 18 165/118 96
04/17/24 03:00 04/17/24 05:30 04/17/24 05:30 04/17/24 02:00 04/17/24 05:30
Intake & Output
04/14/24 04/15/24 04/16/24 04/17/24
07:59 07:59 07:59 07:59
Intake Total 480 / 480
Output Total 700 / 700
Balance -220 / -220
Physical Exam
Physical Exam
GEN: No distress, awake, alert, oriented x3. on supp O2
HEENT: supple, anicteric, mmm, eomi
LUNGS: few crackles at bases, no wheezes
CV: Reg, S1/S2, 2/6 syst LSB
ABD: soft, BS+, NT/ND
EXT: No cyanosis, clubbing, edema
NEURO: Gross non-focal
SKIN: Warm, pink, dry. No rash. Impella in R groin. good distal pulses on R
--- NOTE | 2024-04-17 08:00 | PTCARENOTE ---
Olmos catheter never placed due to pt voiding; Pure wick applied and yellow urine collected.
[2024-04-17 08:16] LABS: NT-proBNP 16500 pg/ml
[2024-04-17 08:25] LABS: Glycohemoglobin (HgbA1c) 6.6 % (4.0-5.6)
--- NOTE | 2024-04-17 08:31 | PTCARENOTE ---
Received pt from warranty clerk RN; pt AAOx3 and resting comfortably in bed; IABP 1:1 in right femoral see flow sheet for details; NSR LBBB on monitor and VSS; + murmur; PIV x2 patent; Nitro and Heparin infusing see flow sheet for details; Lungs
diminished; positive bowel sounds; pure wick in place and pt voiding clear yellow urine; palpable pulses throughout; no edema noted; Right femoral site C/D/I; see nursing documentation for further details.
--- NOTE | 2024-04-17 08:33 | CONSULT.CT ---
Consultation
-
Date/Time Consultation Requested: 04/17/2024
Date/Time Consultation Performed: 04/17/2024
Requesting Provider: Dr. Jonny Parker
Performing Provider: El izquierdo
Reason for Consultation: CABG/AVR evaluation possible mitral valve repair
Patient History
Physicians
Family Physician: Jim Avalos
Inpatient Bitum[employer] Applier: Rylan Kennedy
History of Present Illness
Patient is a 78-year-old woman with history of coronary artery disease who underwent cardiac cath on 02/12 which showed a 40% left main. Echocardiogram performed on 09/16 showed moderate to severe normal flow low gradient aortic stenosis. Peak and
mean gradients measured 46/26 at that time. Aortic valve area 0.9 cm�.
Past medical history significant for hypertension, hyperlipidemia, diabetes, chronic left bundle branch block, obstructive sleep apnea, status post partial colectomy, history of ischemic colitis, chronic kidney disease, pancreatic insufficiency,
degenerative disc disease with epidural injections.
She presented to [facility] ED complaining of 8 out of 10 chest pain. She had been having chest pain on and off all day and while sitting down watching TV noticed pain increasing. EKG performed showed sinus tach at 111 with left bundle
branch block. Slight morphology changes in V3 and V4. STEMI alert called and patient was brought to the [facility]. Dr. Jonny Parker performed urgent cath which showed severe ostial left main disease with no other obstructive coronary artery disease
in the left dominant system. Severely elevated LVEDP and systemic hypertension. Peak gradient across the aortic valve of 25 to 30 mmHg consistent with known moderate to severe aortic stenosis. Placement of a IABP via the right groin. Patient is
stable presently, denies any chest pain or shortness of breath.
Awaiting echo to evaluate valvular pathology. Cardiothoracic surgery consulted for CABG evaluation and aortic valve replacement.
Will obtain preoperative studies. Patient received Brilinta last night and will need a Brilinta washout.
Pending dental eval. Patient reports 1 loose tooth.
Attending cardiothoracic surgeons will review all studies and discussed with patient later today.
Past Medical History
Past Medical History: Angina, CAD, Covid-19, GERD, HTN, Hypercholesterolemia, IDDM, NOLAN, SOB, Valvular Disease and Other (Loose stools almost daily status post partial colectomy [address] Lilly)
Past Surgical History
Past Surgical History: Abdominal, Cholecystectomy and Orthopedic
Past surgical history significant for cholecystectomy, tubal ligation, bilateral cataracts, bilateral total knee replacements, left total hip replacement 08/24/2021 and bowel resection secondary to ischemic colitis by Dr. Lilly 4 years ago
Dental History
Patient has dentures but has 1 remaining tooth which is 'loose'on bottom
Patient has not seen a dentist in over 1 year.
Family History
Mother: at Age (High blood pressure)
Father: at Age and Cause of (Father had a CABG in his late 60s and few years later)
Family Medical History: CAD and Hypertension
Social History
Alcohol: Occasional
Drug: None
Tobacco: Former Smoker
Personal:
Living: With Family
Employment: Retired
Allergies
Allergy/AdvReac Type Severity Reaction Status Date / Time
lisinopril Allergy COUGH Verified 04/16/24 22:41
hayfever Allergy sneezing Uncoded 04/16/24 22:41
Home Medications
�Medication �Instructions �Recorded �Confirmed �Type
empagliflozin 10 mg tablet 10 mg PO DAILY Diabetes 12/22/17 04/17/24 History
(Jardiance)
atorvastatin 20 mg tablet 20 mg PO DAILY High cholesterol 07/06/21 04/17/24 History
bupropion HCl 300 mg 24 hr tablet, 300 mg PO DAILY Mental Health 07/06/21 04/17/24 History
extended release
trazodone 100 mg tablet 200 mg PO HS Mental Health/sleep 07/06/21 04/17/24 History
ascorbic acid (vitamin C) 500 mg 1,000 mg PO DAILY Supplement 08/24/21 04/17/24 History
tablet (Vitamin C)
omeprazole 20 mg capsule,delayed 40 mg PO DAILY Gastrointestinal 08/24/21 04/17/24 History
release issue
Aspirin Low-Strength 81 mg PO DAILY Blood Clot 02/02/23 04/17/24 History
Prevention/Tx
qyibgr-lrdomqxd-qajocfj 2 cap PO AC Gastrointestinal Issue 02/06/23 04/17/24 History
36,000-114,000-180,000 unit
capsule,delay rel (Creon)
diphenoxylate-atropine 2.5 1 tab PO QID PRN diarrhea 02/07/23 04/17/24 History
mg-0.025 mg tablet
lorazepam 0.5 mg tablet 0.5 mg PO DAILY PRN anxiety 02/07/23 04/17/24 History
losartan 25 mg tablet 25 mg PO DAILY #30 tabs 02/08/23 04/17/24 Rx
metoprolol succinate 25 mg 25 mg PO BID #60 tabs 02/08/23 04/17/24 Rx
tablet,extended release 24 hr
calcium 600 mg capsule 1,200 mg PO 04/17/24 History
Review of Systems
-
History Source: Patient
General: Reports Fatigue
HEENT: Reports No Symptoms
Respiratory: Reports SOB and GRAY
Cardiac: Reports Chest Pain and CAD
Abdomen/GI: Reports Reflux and Other (Complains of loose stools almost daily status post partial colectomy 4 years ago)
: Reports No Symptoms
Musculoskeletal: Reports Joint Pain
Skin: Reports No Symptoms
Neurological: Reports No Symptoms
Vascular: Reports No Symptoms
Physical Exam
Vital Signs
Temp 97.8 F 04/17/24 03:00
Temp route: Oral 04/17/24 03:00
Pulse 89 04/17/24 08:00
Rhythm: Normal sinus rhythm 04/17/24 08:00
With- Left Bundle Branch Block 04/17/24 08:00
Resp Rate 20 04/17/24 08:00
Blood pressure 153/50 04/17/24 08:00
Blood pressure extremity used: Right upper arm 04/17/24 08:00
Position: Lying 04/17/24 08:00
MAP (cuff-Kristel Monitor) 80 04/17/24 08:00
SaO2 95 04/17/24 08:00
Nasal Cannula flow liters per minute 5 04/17/24 08:00
Oxygen Mode of Delivery Room air 04/16/24 22:41
Acceptable pain level during hospitalization? 0 04/16/24 22:41
Can the patient verbally communicate their pain? Yes 04/17/24 07:35
Pain scale ratin 04/17/24 07:35
Arterial Systolic Pressure 129 04/17/24 08:00
Arterial Diastolic Pressure 42 04/17/24 08:00
MAP (F-Mvtk-Pjqqnrv Monitor) 96 04/17/24 08:00
Assisted Systolic Pressure 180 04/17/24 03:00
Assisted end diastolic pressure 40 04/17/24 03:00
Actual Weight 160 lb 11.472 oz 04/17/24 05:36
Body Mass Index (BMI) 29.4 04/17/24 05:36
Labs
04/17/24 04:19
04/17/24 02:35
PT 13.6 Sec (11.4-14.6) 04/16/24 22:53
APTT 25.6 Sec (23.4-35.0) 04/17/24 02:35
Hemoglobin A1c 6.6 % (4.0-5.6) H 04/17/24 04:19
Troponin I 0.079 ng/ml H* D 04/17/24 02:35
Gee-V-Jyahphgskgc Pept 22282 pg/ml 04/17/24 02:35
Urinalysis
Urine Color Yellow 04/17/24 03:06
Urine Clarity Clear (Clear) 04/17/24 03:06
Urine pH 5.0 (5.0-9.0) 04/17/24 03:06
Ur Specific [place] 1.010 (<1.030) 04/17/24 03:06
Urine Ketones Negative (Negative) 04/17/24 03:06
Ur Occult Blood Reflex 2+ (Negative) A 04/17/24 03:06
Urine Bilirubin Negative (Negative) 04/17/24 03:06
Leukocyte Esterase Rfl Trace (Negative) A 04/17/24 03:06
Urine RBC None seen /HPF (0-2) 04/17/24 03:06
Urine WBC (Reflex) 6-10 /HPF (0-5) 04/17/24 03:06
Ur Squamous Epith Cells 11-15 /LPF (Few) 04/17/24 03:06
Urine Bacteria (Reflex) Moderate (Negative) A 04/17/24 03:06
Urine Glucose 1+ (Negative) A 04/17/24 03:06
Urine Albumin (Reflex) Negative (Neg - Trace) 04/17/24 03:06
Exam
General: Well Developed, Well Nourished, No Apparent Distress and Comfortable
HEENT: Normocephalic, Anicteric and Atraumatic
Neck: Trachea Midline
Respiratory: Clear
Cardiac: Regular Rhythm and Murmur
GI: Soft, Non Tender, Non Distended and Normal Bowel Sounds
Rectal: Deferred by Provider
Skin: Warm and Dry
Neuro: Awake, Alert, Oriented and AO x 3
Extremities: Pulses (Distal pulses intact bilaterally 1-2+ dorsalis pedis bilaterally feet cool dry, intra-aortic balloon pump in place in RFA)
Lymph: No Lymphadenopathy
Psych: Calm
Assessment / Plan
-
Assessment:
Left main CAD has progressed since last cath. Status post IABP
Left bundle branch block
Moderate to severe aortic stenosis
Moderate to severe mitral regurgitation
Hypertension
Hyperlipidemia
Diabetes mellitus
Ischemic colitis status post partial colectomy, continues with loose stool almost daily
Depression/anxiety
stage 4 chronic kidney disease
Obstructive sleep apnea
Degenerative disc disease
Osteoarthritis status post bilateral knee replacement and left hip replacement
GERD
Acute myeloid leukemia
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
Lumbar stenosis
Pancreatic insufficiency
Iron deficiency anemia
Osteoporosis
Cifuentes's esophagus
Stress incontinence
Lumbar radiculopathy follows with Dr. Pa for injections.
Plan:
Echo today
Preoperative studies ordered, will need dental eval.
All studies to be reviewed by attending cardiothoracic surgeons and STS risk will be calculated. CABG/AVR possible mitral valve repair versus high risk left main PCI with Impella backup and staged TAVR.
[2024-04-17] MEDS: ZENPEP DELAYED RELEASE CAPSULE 1 CAPSULE PO ×4 (08:41→22:25)
[2024-04-17] MEDS: PROTONIX 40 MG PO (08:41)
[2024-04-17] MEDS: LIPITOR 80 MG PO (08:41)
[2024-04-17] MEDS: LOW STRENGTH ASPIRIN 81 MG PO (08:42)
[2024-04-17] MEDS: LOPRESSOR 12.5 MG PO (08:42)
[2024-04-17 09:07] LABS: HDL Cholesterol 63 mg/dl; LDL Cholesterol, Calculated 74 mg/dl; Total Cholesterol 163 mg/dl (50-199); Triglyceride 130 mg/dl (10-149); Very Low Density Lipoprotein 26 mg/dl (0-30)
--- NOTE | 2024-04-17 09:30 | PTCARENOTE ---
Dr Laura and Bijan CLEMONS in [place]; IABP decreased to 1:2; reassess in 1 hour for chest pain.
--- NOTE | 2024-04-17 09:48 | W.PN.UPDATE ---
Update Note
Progress Note Update
9:45 -saw patient with interventional cardiology. wean balloon pump to 1:2. [address] a-line. will add hydralazine 25mg TID. echo with prelim preserved LV function. d/w nursing. will follow
11:15 - Patient remains stable without chest discomfort ~1 hour after decreasing to 1:2. will decrease IABP to 1:3 and follow.
[2024-04-17] MEDS: LASIX 40 MG IV (10:06)
[2024-04-17] MEDS: APRESOLINE 25 MG PO ×3 (10:08→22:24)
--- NOTE | 2024-04-17 10:49 | PTCARENOTE ---
Elo Ellis at bedside and left A-line placed by CV SUBWAY GUARD.
--- NOTE | 2024-04-17 11:07 | W.PN.UPDATE ---
Update Note
Progress Note Update
Radial arterial line placement
A time-out was completed verifying correct patient, procedure, site, patient positioning, and special equipment. Patient was monitored with continuous bedside EKG, blood pressure, pulse ox readings.
Georges's test was performed to ensure adequate perfusion. The patient's left wrist was prepped and draped in sterile fashion.
1% Lidocaine was used to anesthetize the area. Ultrasound was used in real time to localize the radial artery and guide introducer needle into the arterial lumen. The catheter was threaded over the guide wire and the needle was removed with
appropriate pulsatile blood return. The catheter was then secured in place to the skin and a - and sterile dressing applied.
Perfusion to the extremity distal to the point of catheter insertion was checked and found to be unchanged.
Estimated Blood Loss: 0 mL
The patient tolerated the procedure well and there were no complications.
Remains in critical condition.
CPT 23820
--- NOTE | 2024-04-17 11:15 | PTCARENOTE ---
IABP placed to 1:3; Dr Laura in room to assess patient, pt reports no chest pain; Nitro and Heparin infusing see flow sheet for details.
[2024-04-17 11:34] LABS: APTT 48.2 Sec (23.4-35.0)
[2024-04-17 11:57] LABS: Troponin I 0.317 ng/ml
--- NOTE | 2024-04-17 12:03 | PTCARENOTE ---
PTT resulted at 48.2; Dr Laura notified and IABP placed on 1:1.
--- NOTE | 2024-04-17 13:12 | PTCARENOTE ---
Assessment unchanged; NSR LBBB on monitor and VSS: Heparin and Nitro infusing see flow sheet for details; pt resting comfortably in bed; IABP 1:1 and dressing C/D/I.
--- NOTE | 2024-04-17 15:39 | PTCARENOTE ---
Assessment unchanged; IABP at 1:1; Nitro and Heparin infusing see flow sheet for details; NSR LBBB on monitor and VSS.
--- NOTE | 2024-04-17 16:10 | CM ---
Chart reviewed. Patient is independent of ADLS, lives with her son and DIL in a 1 STH, 1 WEI, 0 DME. Patient waiting for CT Surgery consult. Plan is for the patient to return home. CM to follow
[2024-04-17 16:18] LABS: Glucose - Point of Care 138 mg/dl (70-99)
[2024-04-17] MEDS: NITROGLYCERIN PREMIX 250 IV (16:57)
[2024-04-17 17:46] LABS: Troponin I 0.383 ng/ml
[2024-04-17] MEDS: LOPRESSOR 25 MG PO (19:54)
--- NOTE | 2024-04-17 20:00 | PTCARENOTE ---
Assumed care of patient at 1900. Patient is aox4, follow commands appropriately, moves all extremities. Lung sounds are diminished in the bases, saO2 94% on RA. Heart sounds have a regular rate and rhythm, patient is SR with bbb on the monitor,
there is an IABP device in place, there is a murmur audible on auscultation. No observable edema. Patient has active BS in all four quadrants, there is a PW in place draining clear yellow urine. Patient has R groin puncture through which IABP sheath
is run with 4x4 dressing that is CDI, a R wrist puncture with 4x4 dressing that is CDI. Patient has a L radial Carmenza, L AC 18g, and L FA PIV. Patient currently receiving nitro gtt and heparin gtt. VSS.
[2024-04-17] MEDS: MORPHINE SULFATE 1 MG IV (21:26)
--- NOTE | 2024-04-17 22:30 | PTCARENOTE ---
Patient with large pain exacerbation at 2130 approx localized to back. Attempted administrations of Tylenol and repositioning, application of warm blanket. Unable to alleviate patient's pain which was rated as '12/10'. Blood pressure elevated as a
result Nitro gtt which was tapered to 30 mcg increased to 35mcg. Patient given 1mg morphine per parameters. Notified CT PA and received orders for warming pad which was promptly applied. Upon reassessment patient's pain is 2/10 mostly 2/2 headache.
Will continue to monitor pain.
[2024-04-17 22:53] LABS: APTT 75.3 Sec (23.4-35.0)
[2024-04-18] VITALS (63 sets, daily range): BP systolic 39–162; BP diastolic 27–116; BMI 28.8
[2024-04-18] MEDS: MORPHINE SULFATE 1 MG IV (04:46)
[2024-04-18 05:31] LABS: Hematocrit 29.3 % (37.0-47.0); Hemoglobin 10.3 g/dL (12.0-16.0); Mean Corp Hgb Conc. 35.2 g/dL (33.0-37.0); Mean Corpuscular Hgb 30.4 pg (27.0-31.0); Mean Corpuscular Volume 86.4 fL (81.0-99.0); Mean Platelet Volume 10.3 fL (7.4-10.4); Platelet Count 194 10^3/uL (130-400); Red Blood Cell Count 3.39 10^6/uL (4.20-5.40); Red Cell Dist. Width 14.3 % (11.5-14.5); White Blood Cell Count 8.6 10^3/uL (4.8-10.8)
[2024-04-18 05:45] LABS: APTT 110.1 Sec (23.4-35.0)
[2024-04-18] MEDS: HEPARIN 25000 UNITS/250 ML IV (05:52)
[2024-04-18 06:30] LABS: ALT (SGPT) 15 U/L (0-35); AST (SGOT) 27 U/L (14-36); Albumin 3.3 g/dl (3.5-5.0); Alkaline Phosphatase 68 U/L (38-126); Blood Urea Nitrogen 36 mg/dl (7-17); Calcium 8.9 mg/dl (8.4-10.2); Carbon Dioxide 24 mmol/L (22-30); Chloride 105 mmol/L (98-107); Direct Bilirubin 0.2 mg/dl (0.0-0.4); Estimated Creatinine Clearance 31 ml/min; Glucose 141 mg/dl (70-99); Potassium 3.7 mmol/L (3.5-5.1); Sodium 138 mmol/L (135-145); Total Bilirubin 0.7 mg/dl (0.2-1.3); Total Protein 5.4 g/dl (6.3-8.2); eGFR 38.75
[2024-04-18] MEDS: ZENPEP DELAYED RELEASE CAPSULE 1 CAPSULE PO (08:12)
[2024-04-18] MEDS: LASIX 40 MG IV ×2 (08:12→16:49)
[2024-04-18] MEDS: PROTONIX 40 MG PO (08:12)
[2024-04-18] MEDS: LOW STRENGTH ASPIRIN 81 MG PO (08:12)
[2024-04-18] MEDS: LOPRESSOR 25 MG PO ×2 (08:12→21:07)
[2024-04-18] MEDS: APRESOLINE 25 MG PO ×2 (08:12→17:24)
--- NOTE | 2024-04-18 08:23 | PTCARENOTE ---
Received pt from casino shift manager RN; pt AAOx3 and resting comfortably in bed; NSR LBBB on monitor and VSS; IABP in right groin, Dr Laura at bedside and IABP changed to 1:2 for 1 hour; Left A-line and PIV x2 patent; Nitro and Heparin infusing see flow
sheet for details; Lungs diminished; positive bowel sounds; pure wick in place and pt voiding yellow urine; palpable pulses throughout; no edema noted; Right groin dressing C/D/I; see nursing documentation for further details.
[2024-04-18 08:29] LABS: Glucose - Point of Care 134 mg/dl (70-99)
[2024-04-18] MEDS: TYLENOL 650 MG PO (08:33)
--- NOTE | 2024-04-18 09:00 | PTCARENOTE ---
Pt reports no chest pain; IABP placed back to 1:1; Heparin drip stopped for 1 hour; ACT and PTT/INR to be drawn at 1000.
[2024-04-18 10:06] LABS: ACT-LR - POC 141 Seconds (116-155)
--- NOTE | 2024-04-18 10:13 | PTCARENOTE ---
ACT collected and resulted 141; Dr Laura at bedside and notifying collaborative physician team to removed IABP; awaiting PT/INR and PTT results.
[2024-04-18 10:26] LABS: INR 1.09; PT 14.2 Sec (11.4-14.6)
[2024-04-18 10:27] LABS: APTT 50.7 Sec (23.4-35.0)
--- NOTE | 2024-04-18 10:29 | W.PN.CARDCBS ---
Addendum entered and electronically signed by Bibiana Laura MD 04/18/24 17:03:
I saw and examined the patient.
The Parimutuel Cashier's note was reviewed and I agree with the note.
Comment: Patient had quite a eventful day today. We started the day by reattempting IABP wean which she tolerated well yesterday by placing balloon pump on 1:2. When she had tolerated the wean well we discontinued the heparin after placing her
back on one-to-one with attempt to take the balloon pump out to give her a line holiday and allow her to be out of bed into a chair and possibly work with PT before tentative plan for open heart surgery on Monday. ACT was checked before pulling the
balloon pump which was 141 ms. Balloon pump was pulled at bedside and soon after it was pulled she became acutely hypotensive with concern for possible vasovagal event with quick response to IV fluids without needing any pressor support currently.
More than 30 minutes of manual pressure was held over the right common femoral arterial site. Soon after, patient started complaining of right lower quadrant abdominal pain and subsequently acutely became hypotensive again with very brief LOC
without loss of pulse found to be significantly hypotensive where pressors were now added in addition to wide-open fluids with concern for acute bleed. Stat vascular ultrasound was requested to assess the right groin access site with some fullness
noted in her abdomen over the right lower quadrant. Vascular surgery was also called stat well full set of labs were ordered and fluids were continued wide-open. Dr. Cooper Salcido came over immediately to help assess the patient and he agreed that
there is a concern for possible hematoma over the right lower quadrant with confirmation on brief look on vascular ultrasound with plan to transport patient urgently to the heart catheterization lab for lower extremity angiography and possible
stent. Given her tenuous status, we did not feel like she was stable to obtain a abdomen pelvis CT angiogram. She quickly escalated in terms of pressor requirements ending up on Levophed at 30 mcg, vasopressin at 0.04 mcg and epinephrine at 1 mcg.
In the Configuration Specialist she was found to have a very small/subtle extravasation and Dr. Salcido quickly proceeded to place a stent there with resolution of extravasation of contrast. Soon after this, her hemodynamics continue to improve with her pressor
requirement significantly reducing. Given the insult that she had been through from acute blood loss anemia with repeat blood work showing a hemoglobin down to 7 from 10, we decided to upsize the already access left common femoral arterial access
from a 6-8 [place] sheath and replaced the IABP for additional support until definitive surgery date was planned. At the end of the procedure patient was completely off all pressors and tolerated IABP placement well.
Plan is to resume IV heparin and continue aspirin. With tentative schedule for open heart surgery, avoid a second antiplatelet agent for now. We did discuss with vascular surgery that given she cannot tolerate a second agent, we are a bit
concerned about her fresh right common femoral artery stent and will be monitoring this closely.
Multiple lengthy discussions were had with CT surgery with review of her echocardiogram as well as her coronary angiogram with tentative plan for now depending on how she does hemodynamically overnight and her lab work in the morning for coronary
artery bypass grafting with AVR and possible MVR with Dr. Ugo Syed on Monday, April 19, 2024.
All of the above was discussed in significant detail with all 10 of her family members. We expressed that patient is better compared to this morning however still continues to remain in a critical clinical status and will be monitored very closely
in the CVICU.
Plan above was discussed with nursing at bedside.
Bibiana Laura MD, [facility], [facility]
Original Note:
Today's Communication / Plan
-
hypotensive s/p IABP pull, now improving
IV nitro off
Continue aspirin, Lipitor, hydralazine, Lopressor
follow volume status, pending Cr consider continued diuresis attempts
transfer to hospitalist service
Impression / Plan
-
78 year old woman with moderate-severe , moderate-severe MR, 40% ostial LM disease, HTN, HLD, DM, presenting with severe anginal chest pain and found to have progression of ostial LM disease s/p placement of IABP.
Primary Noc Engineer: Dr. Kennedy
Assessment:
Presentation with chest pain
ACS, suspected high risk NSTEMI
Urgent cath 04/17/2024 with progression of previous 40% left main disease
Chronic left bundle branch block
History of apical septal hypertrophy
Moderate by echo 08/2023
Moderate to severe MR by echo 08/2023
HTN
HLD
DM2
History of gangrenous colon s/p colectomy 2018
OA
Cath 04/17/24: Severe ostial left main disease with no obvious addtional obstructive coronary disease, severely elevated LVEDP and systemic hypertension, peak to peak gradient across aortic valve of 25 to 30 mmHg consistent with moderate to severe
, successful placement of IABP in right groin
Plan:
-Patient presented with chest pain. Given tachycardia, ongoing chest discomfort and chronic left bundle branch block, patient was taken urgently to Configuration Specialist as a high risk NSTEMI. Was noted to have severe ostial left main disease without
additional CAD noted, severely elevated LVEDP and moderate to severe . Underwent IABP placement
-remains CP free on IV heparin
-IABP pulled. hypotensive post pull, likely vagal. given IVF and placed in trendelenburg, pressure held by CT surg EMU FARM WORKER with improvement
-IV nitro presently on hold with hypotension
-not felt to be good PCI candidate. appreciate CT surgical input. tentatively for CABG x1 and AVR Monday04/22/24, defer to CT surg
-continue asa. she received 1 dose of brilinta in ER 04/16, allowing brilinta washout
-continue lopressor, hydralazine, lipitor
-continue IV lasix 40mg daily given elevated LVEDP at time of cath. Cr stable at 1.4
-holding OP losartan, jardiance
-patient to be transferred to hospitalist service
-prelim urine culture grew out gram - bacilli. no fever, leukocytosis, or symptoms. ? colonization. defer treatment to primary service
-d/w nursing, CT surgery
Progress Note - Noc Engineer
Subjective
Date of Service: April 18, 2024
Denies chest pain, shortness of breath. Denies urinary burning, urgency, frequency
Objective
Labs:
04/18/24 05:16
04/18/24 05:16
Labs
Hgb 10.3 g/dL (12.0-16.0) L 04/18/24 05:16
Hct 29.3 % (37.0-47.0) L 04/18/24 05:16
Plt Count 194 10^3/uL (130-400) 04/18/24 05:16
PT 13.6 Sec (11.4-14.6) 04/16/24 22:53
INR 1.06 04/16/24 22:53
APTT 110.1 Sec (23.4-35.0) H 04/18/24 05:16
Sodium 138 mmol/L (135-145) 04/18/24 05:16
Potassium 3.7 mmol/L (3.5-5.1) 04/18/24 05:16
BUN 36 mg/dl (7-17) H 04/18/24 05:16
Creatinine 1.4 mg/dL (0.6-1.0) H 04/18/24 05:16
Glucose 141 mg/dl (70-99) H 04/18/24 05:16
Troponins
04/16/24 04/17/24 04/17/24
22:53 02:35 11:12
Troponin I < 0.012 0.079 H* D 0.317 H*
04/17/24
17:10
Troponin I 0.383 H*
Vital Signs and I&O:
Vital Signs
Temp Pulse Resp BP Pulse Ox
98.1 F 74 18 113/93 94
04/18/24 08:00 04/18/24 10:00 04/18/24 10:00 04/18/24 10:00 04/18/24 09:45
Vital Signs
Temp Pulse Resp BP Pulse Ox
98.1 F 74 18 113/93 94
04/18/24 08:00 04/18/24 10:00 04/18/24 10:00 04/18/24 10:00 04/18/24 09:45
Intake & Output
04/16/24 04/17/24 04/18/24 04/19/24
07:59 07:59 07:59 07:59
Intake Total 480 / 504.8 336.5 / 352.8 36.4 / 36.4
Output Total 700 / 700 2049 / 2049 350 / 350
Balance -220 / -195.2 -1713.5 / -1697.2 -313.6 / -313.6
Physical Exam
Physical Exam
GEN: No distress, awake, alert, oriented x3. on supp O2
HEENT: supple, anicteric, mmm, eomi
LUNGS: CTA anterolaterally, no wheezes
CV: Reg, S1/S2, 2/6 syst LSB
ABD: soft, BS+, NT/ND
EXT: No cyanosis, clubbing, edema
NEURO: Gross non-focal
SKIN: Warm, pink, dry. No rash.
--- NOTE | 2024-04-18 11:07 | PTCARENOTE ---
Elo Ellis CVNP and lab animal technician RN at bedside; IABP removed per CV COMMUTATOR TESTER and manual pressure held; Pt vagale, SB pressure down into 70s; IV fluids started and Nitro stopped; Dr Laura and Bijan Lawrence PA at bedside and SBP in the 80s; manual pressure continues to
be held total 30 minutes; pt on bedrest for 6 hours post manual pressure.
--- NOTE | 2024-04-18 11:30 | W.PN.CARD.SR ---
Sheath/IABP Sheath Removal
IABP Sheath Removal
Right Arterial Femoral:
Site appearance prior to IABP sheath removal: Intact
Size of hematoma in cm: 0
IABP sheath removed by:: Registered nurse (MARIA EUGENIA Ellis)
Name of associate removing IABP sheath: Claudia Ellis
Time of IABP sheath removal: 11:45
Time hemostatis achieved: 12:30
Site appearance post IABP sheath removal: Intact
Method of Hemostasis Post IABP Sheath Removal: Manual Pressure
Dressing dry and intact?: No
Comment: Patient became acutely hypotensive and pressure was applied to groin. She was given 1L of LR and blood pressure responded. However, her blood pressure became labile and pressors were added to aid in blood pressure support. Care was
taken over by her primary team and she was eventually taken to the CCL and IABP was replaced.
[2024-04-18 12:03] LABS: ALT (SGPT) 15 U/L (0-35); AST (SGOT) 24 U/L (14-36); Albumin 2.8 g/dl (3.5-5.0); Alkaline Phosphatase 57 U/L (38-126); Blood Urea Nitrogen 31 mg/dl (7-17); Calcium 8.1 mg/dl (8.4-10.2); Carbon Dioxide 17 mmol/L (22-30); Chloride 108 mmol/L (98-107); Estimated Creatinine Clearance 31 ml/min; Glucose 260 mg/dl (70-99); Potassium 4.3 mmol/L (3.5-5.1); Sodium 138 mmol/L (135-145); Total Bilirubin 0.6 mg/dl (0.2-1.3); Total Protein 4.8 g/dl (6.3-8.2); eGFR 38.75
[2024-04-18 12:16] LABS: % Basophils 0.3 % (0-2); % Eosinophils 2.7 % (0-6); % Immature Granulocytes 0.6 % (0-0.5); % Monocytes 9.3 % (1.7-9.3); % Neutrophils 50.1 % (42.2-75.2); Absolute Eosinophils 0.3 10^3/uL (0-0.7); Absolute Immature Granulocytes 0.1 10^3/uL (0-0.05); Absolute Lymphocytes 4.4 10^3/uL (1.2-3.4); Absolute Monocytes 1.1 10^3/uL (0.1-0.6); Hematocrit 20.7 % (37.0-47.0); Hemoglobin 7.1 g/dL (12.0-16.0); Mean Corp Hgb Conc. 34.3 g/dL (33.0-37.0); Mean Corpuscular Hgb 29.8 pg (27.0-31.0); Mean Platelet Volume 10.6 fL (7.4-10.4); Nucleated Red Blood Cells % 0 %; Platelet Count 112 10^3/uL (130-400); Red Blood Cell Count 2.38 10^6/uL (4.20-5.40); Red Cell Dist. Width 14.4 % (11.5-14.5); White Blood Cell Count 11.9 10^3/uL (4.8-10.8)
[2024-04-18 12:18] LABS: Troponin I 0.286 ng/ml
--- NOTE | 2024-04-18 12:18 | PTCARENOTE ---
During manual pressure hold SBP in the 50-60s, pt pale and diaphoretic; Levo increased to 30 and IV Fluids wide open; Emergency bedside management by Dr Laura, Ladan BUSTILLO and Bijan CLEMONS at bedside, SBP in the 30s Epi push and Sodium Bicarb given;
Vaso drip started at 0.03 and Levo remains at 30; SBP remains in the 50-60s Epi drip started at 1; Pt in a out of consciousness, 15L nonrebreather applied; Dr Salcido at bedside and bedside ultrasound preformed; Dr Laura holding manual pressure on
right groin, pt remained in and out of consciousness; Dr Laura at side and pt sent emergently to concrete laborer via bed; labs and EKG performed; 4 units of PRBCs picked up from blood bank and given to concrete laborer; report given to concrete laborer RN.
[2024-04-18 12:26] LABS: Lactic Acid 3.9 mmol/L (0.7-2.0)
--- NOTE | 2024-04-18 12:30 | CON.HOSP ---
Consultation
-
Date/Time Consultation Requested: 04/18/24
Date/Time Consultation Performed: 04/18/24 11.30 am
Requesting Provider: Dr.Hetal aLura
Performing Provider:
Reason for Consultation: CKD,UTI
Family Physician
-
Family Physician: Jim Avalos
Chief Complaint
-
UTI,CKD
History of Present Illness
78 y/o female with chest pain. She has a History of CAD and underwent cardiac cath on 02/13/24 showed 40 % disease in Left main disease Also has severe Aortic stenosis. New LBBB was found and a STEMI alert called. Urgent cath showed severe ostial
left main disease . Patient had an IABP placed via a right inguinal approach. Cardiothoracic surgery was consulted for CABG and aortic valve replacement. IABP was removed today and later patient bradycardia down and also had hypotension. Patient
did not lose pulse however was severely hypotensive. An urgent ultrasound was ordered better repeat hemoglobin from this morning showed a 3 g drop. Patient was immediately taken to the [facility] and stent was placed and also a IABP was placed.
We were consulted for CKD and abnormal urinalysis
Medical History
Past Medical History
Additional Past Medical History:
Sleep apnea, hypertension, lipidemia, coronary artery disease, GERD, arthritis, diabetes, CKD
Past Surgical History: Reports Other
Additional Past Surgical History:
Right knee arthroscopy, tubal ligation, lithotripsy, D&C, right knee replacement, left knee replacement, cataract surgery, left total hip replacement, colon resection.
Social History
Tobacco: Former Smoker
Family History
Family History: Reviewed & Not Pertinent
Allergies / Home Medications
Allergies reflects when Allergies were last updated in [employer].
Home Medications with original date entered in [employer]
Allergy/Medication List:
Allergies
Allergy/AdvReac Type Severity Reaction Status Date / Time
lisinopril Allergy COUGH Verified 04/16/24 22:41
hayfever Allergy sneezing Uncoded 04/16/24 22:41
Home Medications
empagliflozin 10 mg tablet (Jardiance) 10 mg PO DAILY Diabetes 12/22/17
atorvastatin 20 mg tablet 20 mg PO DAILY High cholesterol 07/06/21
bupropion HCl 300 mg 24 hr tablet, extended release 300 mg PO DAILY Mental Health 07/06/21
trazodone 100 mg tablet 200 mg PO HS Mental Health/sleep 07/06/21
ascorbic acid (vitamin C) 500 mg tablet (Vitamin C) 1,000 mg PO DAILY Supplement 08/24/21
omeprazole 20 mg capsule,delayed release 40 mg PO DAILY Gastrointestinal issue 08/24/21
Aspirin Low-Strength 81 mg PO DAILY Blood Clot Prevention/Tx 02/02/23
wifijb-jmqurdiy-bzjmlhe 36,000-114,000-180,000 unit capsule,delay rel (Creon) 2 cap PO AC Gastrointestinal Issue 02/06/23
diphenoxylate-atropine 2.5 mg-0.025 mg tablet 1 tab PO QID PRN diarrhea 02/07/23
lorazepam 0.5 mg tablet 0.5 mg PO DAILY PRN anxiety 02/07/23
losartan 25 mg tablet 25 mg PO DAILY #30 tabs 02/08/23
metoprolol succinate 25 mg tablet,extended release 24 hr 25 mg PO BID #60 tabs 02/08/23
calcium 600 mg capsule 1,200 mg PO 04/17/24
Review of Systems
-
Unable to obtain full review of systems at this time due to: Other (Patient could not give me much history as she had an emergency where her blood pressure dropped and she was unstable.)
Physical Exam
Vital Signs
Vital Signs
Temp Pulse Resp BP Pulse Ox
98.1 F 74 18 113/93 94
04/18/24 08:00 04/18/24 10:00 04/18/24 10:00 04/18/24 10:00 04/18/24 09:45
Physical Exam
Respiratory: Clear
Cardiac: S1/S2, Regular Rhythm and Murmur (AA)
GI: Soft, Non Tender and Normal Bowel Sounds
Musculoskeletal: Other (right inguinal area tenderness.)
Skin: Other (pale, right inguinal bulge noted. )
Neuro: Other (drowsy. )
Laboratory Results
-
Laboratory Results
04/18/24 11:53
04/18/24 11:38
PT 14.2 Sec (11.4-14.6) 04/18/24 10:05
INR 1.09 04/18/24 10:05
APTT 50.7 Sec (23.4-35.0) H 04/18/24 10:05
Lactic Acid 3.9 mmol/L (0.7-2.0) H 04/18/24 11:39
Total Bilirubin 0.6 mg/dl (0.2-1.3) 04/18/24 11:38
AST 24 U/L (14-36) 04/18/24 11:38
ALT 15 U/L (0-35) 04/18/24 11:38
Alkaline Phosphatase 57 U/L (38-126) 04/18/24 11:38
Troponin I 0.286 ng/ml H* 04/18/24 11:38
Data Reviewed
-
Ultrasound: Report Reviewed by Me (Carotid ultrasound-50 to 69% stenosis of right and left carotids)
Medical Tests (Nuc Med, Echo, EKG etc): Image personally visualized and interpreted (Chest x-ray reviewed by me-pulmonary edema)
Impression / Plan
-
IMPRESSION/PLAN:
Cardiac authorization-severe ostial left main disease with no obstructive coronary artery disease in the left dominant system. Severely dilated LVEDP with systemic hypertension. Peak aortic gradient 25 to 30 m mercury consistent with moderate to
severe
Echo 04/17/2024-normal LV size. Moderate LVH. Abnormal septal motion consistent with LBBB. EF 50 to 55%. Stage II diastolic dysfunction. Mitral sclerosis. Mild to moderate mitral regurgitation. Moderate to severe , trace AI.
# E. coli UTI-start ceftriaxone. Wait for sensitivities.
# Right inguinal hematoma
Bleeding was taken to the [facility] by Dr. Salcido and
Vascular ultrasound was ordered but due to patient's instability vascular was called who took patient urgently to [facility].
Stent placed.
Transfuse emergently
H and H Q8H and transfuse as needed.
# Severe hypotension-secondary to bleeding hemorrhagic shock
Code was called but canceled as patient was responsive and never lost pulse.
Patient was immediately taken to the [facility] and stent was placed and also a IABP was placed.
Right inguinal bleed was immediately addressed
Patient received 1 dose of epinephrine and then started on a drip. Also received bicarb, calcium, Levophed, vasopressin.
Repeat ECHO ordered
# Coronary artery disease with urgent cath on 04/17/2024 with a left main disease progression
Left bundle branch block-chronic
Received a dose of Brilinta on 04/16
Waiting for Brilinta washout for CABG/valve surgery
Patient remains on heparin drip. Will defer to cardiology.
# Acute heart failure with preserved ejection fraction and also secondary valvular dysfunction
Patient is hypotensive and cannot be diuresed at present
# Chronic kidney disease-with hypotension and dye exposure. She is at high risk for acute kidney injury on CKD
Avoid hypotension
Recommend nephrology evaluation since patient is going for CT surgery
# Lactic acidosis-secondary to poor circulation from hypotension. Follow. Avoid hypotension
# Moderate to severe AAS moderate to severe MR
# Hypertension-now hypotensive-Hold while NPO and restart if BP better.
Was on losartan, metoprolol as outpatient
# Hyperlipidemia-continue statin
# Diabetes-was on Jardiance as outpatient
# History of gangrenous colon with colectomy in 2019
# IBS-on diphenoxylate-atropine as needed
# Thrombocytopenia-follow
# Hypoalbuminemia
# Nephrolithiasis
# GERD-continue PPI
# Anxiety-continue as needed lorazepam, Wellbutrin, trazodone
# Sleep apnea-continue CPAP
# Ex-smoker
# SCDs for DVT prophylaxis- On Heparin gtt
# Full code
Cc time 38 min
D/W Cards PA and coupon redemption clerk.
D/W RN
D/W Pharmacy
Thank you for the consultation. We will follow patient on consult .
--- NOTE | 2024-04-18 12:31 | W.PN.UPDATE ---
Update Note
Progress Note Update
Patient called as a code overhead due to temporary loss of consciousness in setting of hypotension. CPR did not need to be performed. Patient then came to again so code cancelled. She was noted to be pale and diaphoretic and complained of R sided
abd pain with palpation. She did have some dry heaving, however never vomited. She was never noted to be [place] on review of telemetry. She received IV fluid, however then stopped in place of pressor therapy given concern for volume overload. Due
to persistent hypotension, she was given a push of epi then started on a drip which was uptitrated to 2, also received calcium, bicarb, levo uptitrated to 30, and vasopressin started at 0.03. Stat vascular ultrasound ordered, but official study
never completed. Vascular surgeon was called to bedside. Due to instability with concern for acute bleeding event, patient taken emergently to the OR with vascular, with plan to replace IABP at same time. 4U PRBCs ordered emergently inside sales professional to OR
at vascular request.
1:05 - d/w CT surg DENTISTRY TEACHER and vascular DENTISTRY TEACHER. Underwent emergent placement of covered stent across right proximal common femoral artery pseudoaneurysm with subsequent improvement in blood pressure. Currently getting IABP placed. Updated family in
respite room, who were appreciative.
--- NOTE | 2024-04-18 12:42 | W.PN.UPDATE ---
Update Note
Progress Note Update
Patient was emergently seen by me at the request of supervisor hand workers Dr. Laura in the CVICU secondary to severe hypotension, right lower quadrant abdominal pain following removal of intra-aortic balloon pump. On my exam her groin was flat but her right
retroperitoneal area was full, could palpate hematoma. With a bedside ultrasound I could see no extravasation in the groin/common femoral, but it appeared there was a hematoma in the retroperitoneum I could not visualize the vessels there. I
emergently decided to take her for cath/angiography. Given her instability and other medical comorbidities including need for intra-aortic balloon pump, I felt that open surgical repair was higher risk at this point. Therefore in conjunction with
Dr. Laura I took her back to the cardiac Remote Mortgage Underwriter so that I could perform angiography and then subsequently Dr. Laura could exchanged out for new intra-aortic balloon pump in left groin. See my operative note for operative details. Mostly
tamponade it but on delayed imaging could see extravasation in the the proximal common femoral artery near the femoral head. High bifurcation of the femoral vessels. I placed a covered stent across the region of concern. No further extravasation
noted.
--- NOTE | 2024-04-18 13:02 | OR.RPT ---
Addendum entered and electronically signed by Cooper Salcido MD 04/18/24 13:06:
Note patient had 2+ palpable Right DP pulse upon completion.
Original Note:
Operative Report
Operative Report
PROCEDURE DATE: 04/18/2024
Preoperative diagnosis: Retroperitoneal hemorrhage, marked hemodynamic instability status post removal of intra-aortic balloon pump.
Postoperative diagnosis: Same
Procedure:
1. Emergent left common femoral artery duplex assisted cannulation.
2. Emergent aortogram and pelvic angiogram, right lower extremity arteriogram.
3. Emergent placement of covered stent across right proximal common femoral artery pseudoaneurysm with a 7 mm x 39 mm [place] VBX balloon mounted covered stent.
Surgeon: Omari
Spice Room Worker: None
Complications: None
Anesthesia: Local, sedation
Indications for procedure:
Patient had intra-aortic balloon pump. This was removed and patient had profound hemodynamic instability and right lower quadrant pain. Suspected to have significant right retroperitoneal hematoma. Had fullness/hematoma on exam in the right lower
quadrant/retroperitoneum. In discussion with her [employer] system administrator, she felt would require replacement of left-sided intra-aortic balloon pump (prior was in the right side), and therefore I felt concomitant emergent access in the left groin and
angiography with possible covered stent placement across pseudoaneurysm would be reasonable. I discussed alternatively open surgical repair, however we felt that the patient's instability and medical issues precluded or may have a less ideal open
surgical repair at this point. Patient was emergently brought to the Production Welding Supervisor.
Description of procedure:
Patient was emergently transported from the CVICU to the Production Welding Supervisor. Placed on the table in the supine position. After the adequate administration of anesthesia, the patient was prepped and draped in the standard surgical fashion.
The left common femoral artery was accessed with a micropuncture kit under direct duplex ultrasound guidance. A 6 Estonian sheath was then advanced over a 0.035 inch wire, and a parish's hook catheter was advanced into the abdominal aorta.
Aortogram and pelvic angiogram was obtained. Patent distal infrarenal aorta and bilateral iliac arteries. Initial angiography did not demonstrate any active blush or extravasation in the external iliac artery as suspected. I then selectively
cannulated the right external iliac artery using a flopping on hydrophilic wire and then advance my catheter. External iliac artery angiography (right) was performed in multiple obliquities. The imaging quality was not as ideal for visualizing,
but I did not see any lauren extravasation. I therefore then selectively cannulated the superficial femoral artery and then advanced my catheter to the right common femoral artery. Femoral angiography did not initially demonstrate any
extravasation. I therefore then felt that I would be better be able to image with a sheath in place. I therefore then exchanged the short 6 Estonian sheath over a Storq wire for a 6 Estonian up and over sheath positioned in the distal right external
iliac artery. Angiography was performed in several obliquities. As such I was able to identify a very subtle blush in the proximal right common femoral artery. It appeared to be the site of puncture and likely bleeding. I had difficulty oblique
in the gantry of the adequately to open up fully the bifurcation of the femoral vessels but it appeared to be a slightly high bifurcation. What appeared to be the bifurcation was marked on the screen. The area of blush was marked on the screen.
Again given the patient's instability I felt placing a covered stent here was a safer option. I used a [place] VBX 7 mm x 39 mm covered stent which was ballooned into place. Completion angiography demonstrated no further extravasation. Good
positioning of the stent. Although the filling into the profunda appeared slightly slow. Again it was very hard to see with this imaging the distal extent of the stent very well and to say for sure, but it is possible that the profunda origin was
partially covered by the stent. There was filling into the profunda but it appeared slightly slower than the SFA. Regardless, at this point I felt the pseudoaneurysm was excluded and I saw no other points of extravasation. I now withdrew my
sheath to the left external iliac artery and performed angiography confirming good puncture in the left common femoral artery. Therefore I turned the case over to Dr. Laura to place her intra-aortic balloon pump as needed.
The patient tolerated procedure well.
[2024-04-18] MEDS: ZENPEP DELAYED RELEASE CAPSULE PO (13:29)
--- NOTE | 2024-04-18 13:53 | CM ---
Chart reviewed. Patient taken emergently to the mobile home laborer for a retroperiteal bleed. Patient is independent of ADLS, lives with her son and DIL in a 1 STH, 1 WEI, 0 DME[address] Patient waiting on CT Surgery evaluation. CM to follow
--- NOTE | 2024-04-18 14:00 | PTCARENOTE ---
Pt returned from medical laboratory manager via bed with medical laboratory manager team; NSR on monitor and VSS; IABP in Left groin dressing C/D/I, IABP Arterial sheath was damping and unable to flush; Dr Garcia and medical laboratory manager VALUATION CONSULTANT at bedside attempted to flush IABP arterial sheath and
was unable to flush; IABP arterial sheath capped by Dr Garcia at this time; labs work obtained and PTT resulted at 25.3, Dr Garcia in room and Heparin drip started at 1100 units, next PTT at 2100; Nitro drip infusing per order through Right groin
venous sheath; Pt nauseas and vomited x3 Zofran and Reglan given IV; PIV x3 all patent; 1 unit PRBC ordered and infusing; palpable pulses throughout; Left wrist A-line removed; family at bedside along with Dr Laura and Dr Syed, all updated on
plan.
[2024-04-18] MEDS: ZOFRAN 4 MG IV ×2 (14:41→19:34)
[2024-04-18] MEDS: ROCEPHIN 1000 MG IV (14:44)
[2024-04-18] MEDS: STERILE WATER FOR INJECTION 10 ML IV (14:44)
[2024-04-18] MEDS: NITROGLYCERIN PREMIX 250 IV (14:48)
[2024-04-18 14:49] LABS: APTT 25.3 Sec (23.4-35.0)
[2024-04-18] MEDS: CALCIUM CHLORIDE 10% SYRINGE 60 MG IV (14:52)
[2024-04-18] MEDS: REGLAN 10 MG IV (15:34)
--- NOTE | 2024-04-18 15:38 | W.PN.UPDATE ---
Update Note
Progress Note Update
Evaluated the patient.
Has IABP
Has back pain from lying down flat.
Blood transfusion
Awake and alert and communicating.
Heating pad, Dilaudid
Patient is hypotensive and on vasopressin.
Beta-blockers, nitro, hydralazine heparin drip - cardiology managing.
Recommend nephrology evaluation as creat may go up with hypotension, CKD, contrast exposure
Family at bed side
D/W Nursing.
[2024-04-18] MEDS: DILAUDID 0.25 MG IV (15:39)
--- NOTE | 2024-04-18 15:54 | CON.INTV ---
Consultation
Consultation Request
Date/Time Consultation Requested: 04/18/2024 - 154
Date/Time Consultation Performed: 04/18/2024 - 1552
Requesting Provider: Dr. Cruz
Performing Provider: Dr. Dee
Reason for Consultation: Hypotension/RP bleed/IABP
Medical History
-
Chief Complaint: Chest pain
History of Present Illness:
78-year-old female former tobacco smoker with a past medical history of nephrolithiasis, GERD, DM type II, nonobstructive CAD, chronic LBBB, hypertrophic cardiomyopathy, aortic stenosis, NOLAN on CPAP, hypertension, history of AML, gallstones and
history of facial/chest squamous of carcinoma who presented with chest pain. She has been having chest pain for many years dating back to 2017. She was recently here in the ER on 04/09/2024 with chest pain that is been ongoing for 1-2 months.
Troponin at that time was negative x 2 and she was discharged home and saw cardiology on 04/11/2024. A repeat echo with lipid panel and Lexiscan stress test were ordered. Due to worsening chest pain she came here to the ER instead. She was
initially brought to the [facility] as a STEMI alert and started on nitroglycerin drip with improvement in her symptoms. LHC showed severe ostial left main disease with severely elevated LVEDP at 30 mmHg and a peak gradient across the aortic valve of
25-30 mmHg. An IABP was inserted into the right groin and she was admitted to the CVICU for further care. Cardiothoracic surgery was consulted. TTE performed on 04/17/2024 showed preserved LVEF at 50-55% with stage II diastolic dysfunction and
mild�moderate MR with moderate�severe with mild-moderate pulmonary hypertension. Today, her IABP was removed at bedside which led to severe hypotension with vasovagal response and initially a code 9 was called which was canceled due to to her
never losing a pulse. Vascular surgery was consulted due to concern for retroperitoneal hematoma with pseudoaneurysm. She was emergently brought to the OR and a covered stent was placed across the right proximal SENIOR CONTRACTS ADMINISTRATOR pseudoaneurysm and she was
transferred back to the CVICU for further care. Recruiter Manager services now consulted for additional management/recommendations.
When I saw the patient, she was in bed in no acute distress resting comfortably. She is currently on 2 L/min nasal cannula saturating 97%. Heart rate 91 and BP via left femoral A-line 114/39. BP via NIBP: 132/44. She is currently on a heparin
drip as well as nitroglycerin drip at 50mcg/min. Her IABP is on 1: 1 augmentation. She endorses generalized abdominal pain but no shortness of breath, chest pain, TIPTON, nausea, fevers or chills.
Of note, patient previously followed with us in the [facility] office with last visit on 01/01/[address] Cuenca. She has a history of severe NOLAN on auto CPAP. She had SOB at that time which was suspected to be multifactorial. She had no evidence of
airflow obstruction on spirometry. She did have suspected small airways disease however and was told to use albuterol HFA as needed.
PMHx: History of kidney stones, degenerative disc disease, DM type II, arthritis, GERD, apical variant hypertrophic cardiomyopathy, NOLAN, hypertension, history of AML, left hip fracture s/p left MARIA GUADALUPE, gallstones, history of squamous cell carcinoma in
the face + chest, nonobstructive CAD, aortic stenosis, chronic LBBB
PSHx: Left�MARIA GUADALUPE, bilateral�TKA, cholecystectomy, bilateral tubal ligation, colon resection (May 2019)
Past Medical History
Past Medical History: Other (Above as per HPI)
Past Surgical History: Other (Above as per HPI)
Social History
Tobacco: Former Smoker
Alcohol: Occasional
Drug: None
Personal:
Living: With Family
Employment: Retired
Family History
Family History: CAD (Father), Cancer (Mother: Breast cancer) and Hypertension (Mother)
Allergies / Home Medications
Allergies
Allergy/AdvReac Type Severity Reaction Status Date / Time
lisinopril Allergy COUGH Verified 04/16/24 22:41
hayfever Allergy sneezing Uncoded 04/16/24 22:41
Home Medications
�Medication �Instructions �Recorded �Confirmed �Last Taken �Type
empagliflozin 10 mg tablet 10 mg PO DAILY Diabetes 12/22/17 04/17/24 04/15/24 08:00 History
(Jardiance)
atorvastatin 20 mg tablet 20 mg PO DAILY High cholesterol 07/06/21 04/17/24 04/15/24 08:00 History
bupropion HCl 300 mg 24 hr tablet, 300 mg PO DAILY Mental Health 07/06/21 04/17/24 04/14/24 08:00 History
extended release
trazodone 100 mg tablet 200 mg PO HS Mental Health/sleep 07/06/21 04/17/24 04/15/24 22:00 History
ascorbic acid (vitamin C) 500 mg 1,000 mg PO DAILY Supplement 08/24/21 04/17/24 04/16/24 08:00 History
tablet (Vitamin C)
omeprazole 20 mg capsule,delayed 40 mg PO DAILY Gastrointestinal 08/24/21 04/17/24 04/14/24 08:00 History
release issue
Aspirin Low-Strength 81 mg PO DAILY Blood Clot 02/02/23 04/17/24 04/16/24 08:00 History
Prevention/Tx
qdieqj-[id number] 2 cap PO AC Gastrointestinal Issue 02/06/23 04/17/24 04/16/24 08:00 History
36,000-114,000-180,000 unit
capsule,delay rel (Creon)
diphenoxylate-atropine 2.5 1 tab PO QID PRN diarrhea 02/07/23 04/17/24 04/15/24 20:00 History
mg-0.025 mg tablet
lorazepam 0.5 mg tablet 0.5 mg PO DAILY PRN anxiety 02/07/23 04/17/24 Unknown History
losartan 25 mg tablet 25 mg PO DAILY #30 tabs 02/08/23 04/17/24 04/16/24 08:00 Rx
metoprolol succinate 25 mg 25 mg PO BID #60 tabs 07/04/17/24 04/16/24 08:00 Rx
tablet,extended release 24 hr
calcium 600 mg capsule 1,200 mg PO 04/17/24 04/14/24 08:00 History
Review of Systems
-
History Source: Patient
All other systems: Negative unless noted
Vitals / Labs / Diagnostic Testing
Vital Signs
Temp Pulse Resp BP Pulse Ox
97.8 F 80 18 64/32 97
04/18/24 15:00 04/18/24 15:15 04/18/24 15:15 04/18/24 12:00 04/18/24 15:15
Laboratory Results
04/17/24 04/17/24 04/18/24
17:10 22:34 05:16
PT
INR
APTT 76.0 H 75.3 H 110.1 H
04/18/24 04/18/24
10:05 14:25
PT 14.2
INR 1.09
APTT 50.7 H 25.3
Microbiology
04/17/24 03:06 Urine Urine Culture - Preliminary
Gram negative bacilli
Diagnostic Testing:
Physical Exam
-
HEENT: Normocephalic and Anicteric
Cardiovascular: S1/S2 and Peripheral Edema (negative)
Respiratory: Wheeze (negative), Rales (negative), Rhonchi (negative) and Non-Labored Respirations
GI: Soft, Non Distended, Tender (Epigastrium without rebound or peritoneal signs) and Normal Bowel Sounds
Neurology: Awake, Alert and Tremors (negative)
Skin: Warm and Dry
General: Respiratory Distress (negative), Comfortable, Pain (abdominal), Chills (negative) and Sweats (negative)
Assessment
-
Assessment: 78-year-old female former tobacco smoker with a PMHx of nephrolithiasis, GERD, DM type II, nonobstructive CAD, chronic LBBB, hypertrophic cardiomyopathy, aortic stenosis, NOLAN on CPAP, hypertension, history of AML, gallstones and history
of facial/chest squamous of carcinoma who presented with chest pain. Her chest pain is chronic and she was recently seen in the ER on 04/09/2024 and ruled out for an [place]. She saw cardiology on 04/11/2024 with plans for a stress test and repeat echo.
Due to worsening chest pain she return to the ER on the evening of 04/16/2024 and brought emergently to a left heart catheterization as a STEMI alert. She was started on nitroglycerin drip and LHC showed severe ostial left main disease with severely
elevated LVEDP and a peak gradient across the AV of 25-30 mmHg. A right groin IABP was inserted and she was admitted to the CVICU. On 04/18/2024, her IABP was removed which led to severe hypotension and vasovagal response. Vascular surgery was
consulted and emergently brought to the OR for a covered stent which was placed across the right proximal [employer]S ADMINISTRATOR pseudoaneurysm and she was transferred back to the CVICU for further care. Recruiter Manager/pulmonary service is now consulted for additional
management/recommendations.
Chronic conditions BODY SANDER: History of kidney stones, degenerative disc disease, DM type II, arthritis, GERD, apical variant hypertrophic cardiomyopathy, NOLAN, hypertension, history of AML, left hip fracture s/p left MARIA GUADALUPE, gallstones, history of squamous
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
Impression:
#Acute retroperitoneal hemorrhage s/p right IABP removal s/p emergent placement of covered stent across right proximal [employer]S ADMINISTRATOR pseudoaneurysm (POD#0)
#Acute on chronic anemia (baseline Hb 11�13g/dL)
#Elevated troponin likely due to NSTEMI (troponin peaked at 0.383 on 04/17/2024)
#UTI with GNR seen on UCx from 04/17/2024
#Acute thrombocytopenia
#CAD with severe ostial left main disease (via LHC on 04/17/2024)
#Acute decompensated heart failure with LVEDP: 30 mmHg via LHC on 04/17/2024
#Moderate�severe aortic stenosis with peak gradient of 25-30 mmHg via LHC
#CKD (baseline creatinine 1.1�1.4)
#Hyperglycemia with DM type II
#Bilateral internal carotid artery stenosis
#Former tobacco smoker
Plan:
Postoperative cardiovascular intensive care unit monitoring
Supplemental oxygen as needed to maintain SpO2 >90-94%
prn nebulized bronchodilators - not currently bronchospastic
Incentive spirometry encouraged 10x per hour for at least 4 hrs a day
Aspiration precautions
Pain control
Diurese as tolerated and keep net negative while trending sCr, strict I/O and UOP
- Currently on lasix 40mg IV BID
Continue ceftriaxone and plan for 7 days ABx assuming she remains clinically stable with afebrile state for at least 48 hours prior to stopping antibiotics
Follow-up urine culture from 04/17/2024 - growing GNR
Neuro and vascular checks per protocol
Maintain MAP>65
Continue vasopressors and aim for SBP>100mmHg to help avoid JESSIE given her hypotension today with RP-hemorrhage
Would cautiously give hydralazine to reduce afterload given her severity of , but if compromising MAP then need to hold anti-HTN meds, phuong while on vasopressors
Replete electrolytes with K>4, Mg>2
Maintain euglycemia with goal BG 140-180
- Start ISS moderate resistance AC and adjust diet to ADA
Vascular surgery following-correspondence and operative notes reviewed
Transfuse blood products as needed to keep Hb>7g/dL, and plt>50k (given post-operative status)
- If Hb continues to decline then would check CT Abd/Pelvis without contrast vs CTA A/P to assess for RP-hemorrhage
Cautiously continue heparin gtt which is imperative given her IABP
Continue ASA
PPI (home med)
DVT prophylaxis: heparin gtt
Early nutrition
Early mobilization
Critical care statement: A total of 44 minutes of critical care time was provided for this patient today. This includes management of unstable vital signs, evaluation of the patient at bedside, reviewing the patient's pertinent medical records
including radiographs, microbiology, laboratory evaluations, and discussion with primary team, consultants, pharmacy, nutrition, physical therapy, case management, charge nurse, critical care nursing, and respiratory therapy.
Data:
Cerebrovascular US 04/17/2024:
1. Right carotid: Heavily calcified plaque noted proximal internal carotid artery, calcified plaque in the common carotid artery as well. Velocity profile consistent with 50-69% internal carotid artery stenosis.
2. Left carotid: Heavily calcified plaque noted proximal internal carotid artery, calcified plaque in the common carotid artery as well. Velocity profile consistent with 50-69% internal carotid artery stenosis.
3. Antegrade flow bilateral vertebral arteries.
CXR 04/16/2024:
1. MODERATE ACUTE INTERSTITIAL CARDIOGENIC PULMONARY EDEMA.
2. Normal heart size.
[2024-04-18 16:06] LABS: B.E. -6.7 mmol/L; HCO3 19.2 mmol/L (21-28); Ionized Calcium 1.49 mMOL/L (1.15-1.33); O2 Saturation % 98.1 % (94-98); PCO2 39 mmHg (32-35); PO2 94 mmHg (83-108); Potassium 4.3 mMOL/L (3.5-5.1); Sodium 133 mMOL/L (136-145)
--- NOTE | 2024-04-18 16:06 | CM ---
Patient going for emergent surgery 04/19/24. Reviewed preoperative and postoperative instructions, along with restrictions done with patient's son, Naveen and DIL. Plan is for the patient to return home with CT Transitional RN. CM to follow
[2024-04-18 16:15] LABS: Hematocrit 36.7 % (37.0-47.0); Hemoglobin 12.7 g/dL (12.0-16.0)
[2024-04-18 16:20] LABS: Lactic Acid 2.1 mmol/L (0.7-2.0)
[2024-04-18 16:24] LABS: Blood Urea Nitrogen 34 mg/dl (7-17); Calcium 10.9 mg/dl (8.4-10.2); Carbon Dioxide 19 mmol/L (22-30); Chloride 108 mmol/L (98-107); Estimated Creatinine Clearance 27 ml/min; Glucose 306 mg/dl (70-99); Potassium 4.5 mmol/L (3.5-5.1); Sodium 138 mmol/L (135-145); eGFR 33.01
--- NOTE | 2024-04-18 16:34 | CHAP ---
request relayed to Fr. Anderson of [facility]. He anticipates arriving within the hour to provide [facility] at Ms. Souza's request.
--- NOTE | 2024-04-18 16:49 | ITS.CL.PN ---
Relief Salesperson - Procedure Note
Procedure
Procedure Note:
INTRA-AORTIC BALLOON PUMP
Date of service: April 18, 2024
Using the same access on the left common femoral arterial side obtained by vascular surgery for peripheral stent and angiogram, the sheath was upsized over a 035 wire to a 8 Hungarian sheath without any issues. Through this a 40 cc IABP was advanced
into the thoracic descending aorta and after flushing the device adequately to ensure no air or blood clots passed through, IABP was started at one-to-one with no other acute complications.
Right common femoral venous access was also obtained to provide for more access for medications using a ultrasound and micropuncture kit and a 6 Hungarian sheath was placed there.
All sheaths were sutured in place.
Bibiana Laura MD, FACC, [facility]
[2024-04-18] MEDS: SODIUM BICARBONATE 100 MEQ IV (16:54)
--- NOTE | 2024-04-18 17:37 | PTCARENOTE ---
1 unit of Platelets ordered and given without difficultes.
--- NOTE | 2024-04-18 18:33 | PTCARENOTE ---
Pt washed with CHG soap, sheets and a new gown applied; assessment unchanged; NSR LBBB on monitor and VSS; Nitro and Heparin infusing see flow sheet for details.
[2024-04-18] MEDS: LIPITOR PO (18:47)
[2024-04-18 20:13] LABS: B.E. -1.9 mmol/L; HCO3 22.2 mmol/L (21-28); O2 Saturation % 97.8 % (94-98); PCO2 35 mmHg (32-35); PO2 88 mmHg (83-108); Potassium 3.8 mMOL/L (3.5-5.1); Sodium 136 mMOL/L (136-145); pH 7.41 (7.35-7.45)
[2024-04-18 20:17] LABS: Hematocrit 35.6 % (37.0-47.0); Mean Corp Hgb Conc. 36.5 g/dL (33.0-37.0); Mean Corpuscular Hgb 30.7 pg (27.0-31.0); Mean Platelet Volume 9.9 fL (7.4-10.4); Platelet Count 146 10^3/uL (130-400); Red Blood Cell Count 4.24 10^6/uL (4.20-5.40); Red Cell Dist. Width 13.9 % (11.5-14.5); White Blood Cell Count 20.3 10^3/uL (4.8-10.8)
[2024-04-18 20:28] LABS: APTT 98.8 Sec (23.4-35.0)
[2024-04-18 20:59] LABS: Blood Urea Nitrogen 37 mg/dl (7-17); Calcium 10.2 mg/dl (8.4-10.2); Carbon Dioxide 19 mmol/L (22-30); Chloride 105 mmol/L (98-107); Estimated Creatinine Clearance 29 ml/min; Glucose 265 mg/dl (70-99); Sodium 140 mmol/L (135-145); eGFR 35.67
--- NOTE | 2024-04-18 21:00 | PTCARENOTE ---
Assumed care of the patient at 1900. Patient resting comfortably in bed, dozing off in between verbal interaction, AOx3. On 2LNC for comfort SpO2 96-98%. NSR on telemetry with PVCs, BP via L femoral arterial line dampened, line zeroed and scale
optimized via monitor, BPs via art line began correlating with RUE cuff pressures. VSS. IABP 1:1 augmentation, ECG trigger. Monitoring mean pressures on IABP to be maintained <100 mmHg, titrating Nitroglycerin gtt accordingly. No c/o CP. Patient c/o
abdominal tenderness, slight ecchymosis noted in RLQ, pt also c/o nausea, PRN Zofran given, PA aware. Olmos catheter in place, urine yellow, cloudy. Skin intact, scattered ecchymosis from various access sites/IV lines, most notably on L wrist. PIVx3
in LAC, L anterior wrist, and R posterior wrist. Her LAC 18 infusing heparin found to be infiltrated. PA aware, site border marked, warm compress applied and site elevated on a pillow. R venous sheath in place infusing KVO and nitroglycerin.
Manifold attached to sheath and heparin gtt moved to this site as well. K pad in place beneath her low back. Labs drawn from arterial. Assessment of needs ongoing, see worklist for titration/I&O details.
[2024-04-18] MEDS: APRESOLINE PO (22:40)
[2024-04-18] MEDS: DESYREL 200 MG PO (23:22)
--- NOTE | 2024-04-18 23:44 | PTCARENOTE ---
MAPs on IABP ranging 65-70 mmHg, Rosa CLEMONS at bedside to assess, instructed to reduce nitroglycerin to 10mcgs/min but to not discontinue. Mean pressures after reduction 73-80's. Assessment ongoing. Urine output for last hour 30 cc's. DP palpable,
assessment otherwise unchanged. Patient asleep in bed, arousable to voice/gentle tactile stimulus.
[2024-04-19] VITALS (21 sets, daily range): BP systolic 87–137; BP diastolic 17–81; BMI 29.6
[2024-04-19 00:16] LABS: Glucose - Point of Care 209 mg/dl (70-99)
[2024-04-19] MEDS: NOVOLOG FLEXPEN-MODERATE RESISTANCE 3 UNITS SC (00:19)
[2024-04-19] MEDS: ZOFRAN 4 MG IV (00:57)
[2024-04-19 03:14] LABS: Hemoglobin 12.1 g/dL (12.0-16.0); Mean Corp Hgb Conc. 35.6 g/dL (33.0-37.0); Mean Corpuscular Hgb 30.9 pg (27.0-31.0); Mean Platelet Volume 10.3 fL (7.4-10.4); Platelet Count 125 10^3/uL (130-400); Red Blood Cell Count 3.91 10^6/uL (4.20-5.40); White Blood Cell Count 14.6 10^3/uL (4.8-10.8)
--- NOTE | 2024-04-19 03:20 | PTCARENOTE ---
Able to flush arterial line but unable to get blood return for lab work. Labs obtained via venipuncture. Arterial tracing dampened, positional, no longer correlating with cuff pressure and IABP pressure on monitor. PA aware. Patient asleep,
assessment unchanged, see worklist for I/O and VS details.
[2024-04-19 03:53] LABS: APTT 171.4 Sec (23.4-35.0)
[2024-04-19 04:11] LABS: ALT (SGPT) 25 U/L (0-35); AST (SGOT) 46 U/L (14-36); Albumin 3.1 g/dl (3.5-5.0); Alkaline Phosphatase 48 U/L (38-126); Blood Urea Nitrogen 39 mg/dl (7-17); Calcium 9.7 mg/dl (8.4-10.2); Carbon Dioxide 19 mmol/L (22-30); Chloride 111 mmol/L (98-107); Estimated Creatinine Clearance 29 ml/min; Glucose 165 mg/dl (70-99); Potassium 3.7 mmol/L (3.5-5.1); Sodium 144 mmol/L (135-145); Total Bilirubin 0.7 mg/dl (0.2-1.3); Total Protein 4.8 g/dl (6.3-8.2); eGFR 35.67
[2024-04-19] MEDS: BACTROBAN 2% OINTMENT 1 APPLIC NASAL ×2 (05:06→19:54)
[2024-04-19] MEDS: MAGNESIUM OXIDE 500 MG PO (06:09)
[2024-04-19] MEDS: PROTONIX 40 MG PO (06:09)
[2024-04-19] MEDS: LOPRESSOR 25 MG PO (06:09)
[2024-04-19 06:17] LABS: Glucose - Point of Care 177 mg/dl (70-99)
--- NOTE | 2024-04-19 06:18 | W.CVOR.SURPR ---
CVOR Surgeon Immed Pre Op
-
I have examined this patient prior to performance of the scheduled procedure.
The patient's condition is unchanged from the time of the dictated/written History and
Physical and the patient is able to undergo the scheduled procedure.
I had a long conversation both with Mrs. Rosalinda Souza and her family members yesterday and this morning. We reviewed her pathology including her left main CAD and valvular heart disease. We discussed the proposed surgical interventions
including coronary artery bypass grafting x 2-3, AVR, MVR, and ELAA. We discussed the periprocedural risks (including, but not limited to, , stroke, ID, arrhythmia, PPM requirement, potential VAD requirement [unlikely], PNA, JESSIE/F, bleeding,
and infection), reviewed the expected in-hospital postprocedural course, and discussed the expected outpatient recovery. While this surgical intervention represents a higher risk procedure given the patient's age and comorbidities as well as her
preoperative condition, it is my belief that surgery offers her the best option given her pathologies. All questions were answered to the best of my abilities. The patient and her family are agreeable to proceed. The patient's son (POA) signed
the surgical consent on the patient's behalf.
[2024-04-19] MEDS: NOVOLOG FLEXPEN-MODERATE RESISTANCE SC ×2 (06:19→11:49)
--- NOTE | 2024-04-19 06:42 | PTCARENOTE ---
Patient given full bed bad with Hibiclens, then followed up with CHG wipes. Nitro increased for elevated MAP. Heparin held at call from OR. Family at bedside talking with patient, Dr. Syed at bedside, patient in agreement for POC, no questions
indicated.
[2024-04-19 07:35] LABS: ACT+ - POC 104 Seconds (82-134)
[2024-04-19] MEDS: LOPRESSOR PO (09:28)
[2024-04-19] MEDS: APRESOLINE PO ×2 (09:28→16:23)
[2024-04-19] MEDS: PROTONIX PO (09:29)
[2024-04-19] MEDS: LOW STRENGTH ASPIRIN PO (09:29)
[2024-04-19 11:00] LABS: B.E. - POC -1.3 mmol/L; Glucose - POC 171 mg/dl (70-99); HCO3 - POC 23 mmol/L (21-29); Hematocrit - POC 29 % PCV (37-47); Hemodilution- POC Yes; Hemoglobin Calculated - POC 9.9; Ionized Calcium - POC 1.29 mmol/L (1.12-1.27); O2 Saturation %Calculated-POC 99.4 5 (92-96); PCO2 - POC 38 mmHg (35-45); PO2 - POC 158 mmHg (80-100); POC Comment PRE; Potassium - POC 3.5 mmol/L (3.6-5.0); Sodium - POC 140 mmol/L (135-145)
[2024-04-19 11:28] LABS: B.E. - POC 3.7 mmol/L; Glucose - POC 121 mg/dl (70-99); HCO3 - POC 28 mmol/L (21-29); Hematocrit - POC 15 % PCV (37-47); Hemodilution- POC Yes; Hemoglobin Calculated - POC 5.2; Ionized Calcium - POC 0.98 mmol/L (1.12-1.27); PCO2 - POC 37 mmHg (35-45); PO2 - POC 498 mmHg (80-100); POC Comment CPB; Potassium - POC 5.1 mmol/L (3.6-5.0); Sodium - POC 139 mmol/L (135-145); pH - POC 7.48 (7.35-7.45)
[2024-04-19 11:50] LABS: Glucose - POC 156 mg/dl (70-99); HCO3 - POC 26 mmol/L (21-29); Hematocrit - POC 23 % PCV (37-47); Hemodilution- POC Yes; Ionized Calcium - POC 1.02 mmol/L (1.12-1.27); PCO2 - POC 38 mmHg (35-45); PO2 - POC 347 mmHg (80-100); POC Comment CPB; Potassium - POC 4.6 mmol/L (3.6-5.0); Sodium - POC 140 mmol/L (135-145); pH - POC 7.45 (7.35-7.45)
--- NOTE | 2024-04-19 12:09 | CM ---
pt in OR today, cm to follow
--- NOTE | 2024-04-19 12:12 | W.PN.UPDATE ---
Update Note
Progress Note Update
Patient was not in the room.
D/W CV PA Pt taken for emergent surgery.Will be on CTS service.
Will sign off. Please call us back if we can be of assistance.
[2024-04-19 12:27] LABS: B.E. - POC 1.7 mmol/L; Glucose - POC 161 mg/dl (70-99); HCO3 - POC 26 mmol/L (21-29); Hematocrit - POC 27 % PCV (37-47); Hemodilution- POC Yes; Hemoglobin Calculated - POC 9.2; Ionized Calcium - POC 1.06 mmol/L (1.12-1.27); O2 Saturation %Calculated-POC 99.9 5 (92-96); PCO2 - POC 37 mmHg (35-45); PO2 - POC 258 mmHg (80-100); POC Comment CPB; Potassium - POC 4.6 mmol/L (3.6-5.0); Sodium - POC 141 mmol/L (135-145); pH - POC 7.45 (7.35-7.45)
[2024-04-19 12:47] LABS: ACT+ - POC 969 Seconds (82-134)
[2024-04-19 12:52] LABS: B.E. - POC 1.7 mmol/L; Glucose - POC 130 mg/dl (70-99); HCO3 - POC 25 mmol/L (21-29); Hematocrit - POC 27 % PCV (37-47); Hemodilution- POC Yes; Hemoglobin Calculated - POC 9.2; Ionized Calcium - POC 1.03 mmol/L (1.12-1.27); O2 Saturation %Calculated-POC 99.9 5 (92-96); PCO2 - POC 34 mmHg (35-45); PO2 - POC 305 mmHg (80-100); POC Comment CPB; Potassium - POC 4.3 mmol/L (3.6-5.0); Sodium - POC 142 mmol/L (135-145); pH - POC 7.48 (7.35-7.45)
[2024-04-19 13:11] LABS: ACT+ - POC 910 Seconds (82-134)
[2024-04-19 13:23] LABS: B.E. - POC 0.3 mmol/L; Glucose - POC 111 mg/dl (70-99); HCO3 - POC 27 mmol/L (21-29); Hematocrit - POC 28 % PCV (37-47); Hemodilution- POC Yes; Hemoglobin Calculated - POC 9.6; O2 Saturation %Calculated-POC 99.9 5 (92-96); PCO2 - POC 51 mmHg (35-45); PO2 - POC 339 mmHg (80-100); POC Comment CPB; Potassium - POC 4.2 mmol/L (3.6-5.0); Sodium - POC 143 mmol/L (135-145); pH - POC 7.33 (7.35-7.45)
[2024-04-19 13:40] LABS: ACT+ - POC 824 Seconds (82-134)
[2024-04-19 13:54] LABS: B.E. - POC 0.8 mmol/L; Glucose - POC 106 mg/dl (70-99); HCO3 - POC 26 mmol/L (21-29); Hematocrit - POC 27 % PCV (37-47); Hemodilution- POC Yes; Hemoglobin Calculated - POC 9.2; Ionized Calcium - POC 1.03 mmol/L (1.12-1.27); O2 Saturation %Calculated-POC 99.9 5 (92-96); PCO2 - POC 41 mmHg (35-45); PO2 - POC 310 mmHg (80-100); POC Comment CPB; Potassium - POC 4.5 mmol/L (3.6-5.0); Sodium - POC 143 mmol/L (135-145); pH - POC 7.41 (7.35-7.45)
[2024-04-19 14:10] LABS: ACT+ - POC 715 Seconds (82-134)
[2024-04-19 14:10] LABS: B.E. - POC 0.2 mmol/L; Glucose - POC 116 mg/dl (70-99); HCO3 - POC 23 mmol/L (21-29); Hematocrit - POC 27 % PCV (37-47); Hemodilution- POC Yes; Hemoglobin Calculated - POC 9.3; Ionized Calcium - POC 0.97 mmol/L (1.12-1.27); PCO2 - POC 28 mmHg (35-45); PO2 - POC 410 mmHg (80-100); POC Comment CPB; Potassium - POC 5.6 mmol/L (3.6-5.0); Sodium - POC 141 mmol/L (135-145); pH - POC 7.51 (7.35-7.45)
[2024-04-19] MEDS: STERILE WATER FOR INJECTION IV (14:47)
[2024-04-19] MEDS: ROCEPHIN IV (14:47)
[2024-04-19 14:50] LABS: ACT+ - POC 678 Seconds (82-134)
[2024-04-19 15:31] LABS: B.E. - POC 1.3 mmol/L; Glucose - POC 97 mg/dl (70-99); HCO3 - POC 24 mmol/L (21-29); Hematocrit - POC 25 % PCV (37-47); Hemodilution- POC Yes; Hemoglobin Calculated - POC 8.5; Ionized Calcium - POC 0.93 mmol/L (1.12-1.27); PCO2 - POC 29 mmHg (35-45); PO2 - POC 357 mmHg (80-100); POC Comment WARM; Potassium - POC 4.5 mmol/L (3.6-5.0); Sodium - POC 143 mmol/L (135-145); pH - POC 7.52 (7.35-7.45)
[2024-04-19 15:59] LABS: B.E. - POC -2.3 mmol/L; Glucose - POC 146 mg/dl (70-99); HCO3 - POC 22 mmol/L (21-29); Hematocrit - POC 24 % PCV (37-47); Hemodilution- POC Yes; Hemoglobin Calculated - POC 8.1; Ionized Calcium - POC 0.89 mmol/L (1.12-1.27); O2 Saturation %Calculated-POC 99.9 5 (92-96); PCO2 - POC 37 mmHg (35-45); PO2 - POC 327 mmHg (80-100); POC Comment CPB; Potassium - POC 5.2 mmol/L (3.6-5.0); Sodium - POC 144 mmol/L (135-145); pH - POC 7.39 (7.35-7.45)
[2024-04-19 17:32] LABS: B.E. - POC -7.6 mmol/L; Glucose - POC 200 mg/dl (70-99); HCO3 - POC 19 mmol/L (21-29); Hematocrit - POC 24 % PCV (37-47); Hemodilution- POC Yes; Hemoglobin Calculated - POC 8.1; Ionized Calcium - POC 1.74 mmol/L (1.12-1.27); O2 Saturation %Calculated-POC 99.6 5 (92-96); PCO2 - POC 45 mmHg (35-45); PO2 - POC 204 mmHg (80-100); POC Comment POST; Potassium - POC 4.5 mmol/L (3.6-5.0); Sodium - POC 144 mmol/L (135-145); pH - POC 7.24 (7.35-7.45)
--- NOTE | 2024-04-19 17:45 | W.PN.INTV ---
Today's Communication / Plan
Recommendations
Continue with mechanical ventilation
Chest is open and continue with open chest dressing
Consider transfusing 1-2 units of cryoprecipitate given she has received multiple units of PRBC, FFP and platelets
Trend INR, H&H and platelet count
Continue with IABP
Antibiotics for UTI
Maintain MAP >65
DAPT with high intensity statin
PO amio
Guarded prognosis
Assessment
-
Assessment: 78-year-old female former tobacco smoker with a PMHx of nephrolithiasis, GERD, DM type II, nonobstructive CAD, chronic LBBB, hypertrophic cardiomyopathy, aortic stenosis, NOLAN on CPAP, hypertension, history of AML, gallstones and history
of facial/chest squamous of carcinoma who presented with chest pain. Her chest pain is chronic and she was recently seen in the ER on 04/09/2024 and ruled out for an UT. She saw cardiology on 04/11/2024 with plans for a stress test and repeat echo.
Due to worsening chest pain she return to the ER on the evening of 04/16/2024 and brought emergently to a left heart catheterization as a STEMI alert. She was started on nitroglycerin drip and LHC showed severe ostial left main disease with severely
elevated LVEDP and a peak gradient across the AV of 25-30 mmHg. A right groin IABP was inserted and she was admitted to the CVICU. On 04/18/2024, her IABP was removed which led to severe hypotension and vasovagal response. Vascular surgery was
consulted and emergently brought to the OR for a covered stent which was placed across the right proximal SUSTAINABLE PRODUCTS MARKETING MANAGER pseudoaneurysm and she was transferred back to the CVICU for further care. Neurological Surgery Teacher/pulmonary service is now consulted for additional
management/recommendations.
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
Impression:
#Acute retroperitoneal hemorrhage s/p right IABP removal s/p emergent placement of covered stent across right proximal SU[employer]AINABLE [employer]ODUCTS MARKETING MANAGER pseudoaneurysm (POD#1)
#NSTEMI s/p CABG x 3 (POD #0)
#Moderate�severe aortic stenosis with moderate MR/MS s/p AV-replacement + MV-replacement with SAMIRA�exclusion (POD #0)
#Acute on chronic anemia (baseline Hb 11�13g/dL)
#Elevated troponin likely due to NSTEMI (troponin peaked at 0.383 on 04/17/2024)
#UTI with Klebsiella aerogenes seen on UCx from 04/17/2024
#Acute thrombocytopenia
#CAD with severe ostial left main disease (via LHC on 04/17/2024)
#Acute decompensated heart failure with LVEDP: 30 mmHg via LHC on 04/17/2024
#Moderate�severe aortic stenosis with peak gradient of 25-30 mmHg via LHC
#CKD (baseline creatinine 1.1�1.4)
#Hyperglycemia with DM type II
#Bilateral internal carotid artery stenosis
#Former tobacco smoker
Plan:
Postoperative management as per cardiothoracic surgery as well as vascular surgery; operative notes reviewed
Ventilator settings reviewed
FiO2 will be weaned to maintain SpO2 >90-94%
Minute ventilation will be adjusted
Arterial blood gases will be monitored
Spontaneous breathing trial will be attempted with hopeful extubation after anesthesia/sedation wear off
prn nebulized bronchodilators
Pulmonary artery catheter parameters will be followed
Pressors/antihypertensive/inotropes/diuretics will be provided as needed
Maintain MAP>65
Replete electrolytes with K>4, Mg>2
Once patient able to tolerate would resume diuresis
Her urine culture from 04/17/2024 is growing Klebsiella aerogenes which is resistant to Ancef. Change cefazolin to ceftriaxone and complete a 6-day course of antibiotics
Monitor chest tube output (mediastinal chest tubes x 2 + left/right pleural chest tubes)
Monitor hemoglobin
Monitor platelet count and coags
Transfuse blood products as needed to maintain Hb>7g/dL, plt>50k (given post-operative status)
-She has received 5 units PRBCs today, 1 unit platelets on 04/18 and is getting another 2 units of platelets and 2 units of FFP. Recommend giving 1-2 units of cryoprecipitate given risk of dilutional coagulopathy in the setting of post�CPB
coagulopathy
- If Hb declines then consider CT Abd/Pelvis without contrast vs CTA A/P to assess for RP-hemorrhage
Continue IABP, defer restarting heparin gtt to CT-surgery, however this is risky in setting of post-CPB coagulopathy
Continue DAPT with ASA + plavix
PPI (home med)
CT surgery managing chest tubes
Monitor blood sugar to maintain euglycemia with goal BG 140-180
Insulin drip per protocol
Aspiration precautions
VAP prevention protocol
DVT prophylaxis
Early nutrition
Early mobilization
Critical care statement: A total of 42 minutes of critical care time was provided for this patient today. This includes management of ventilator, spontaneous breathing trial, arterial blood gases, pressors, of unstable vital signs, evaluation of the
patient at bedside, reviewing the patient's pertinent medical records including radiographs, microbiology, laboratory evaluations, and discussion with primary team and critical care nursing.
Data:
Cerebrovascular US 04/17/2024:
1. Right carotid: Heavily calcified plaque noted proximal internal carotid artery, calcified plaque in the common carotid artery as well. Velocity profile consistent with 50-69% internal carotid artery stenosis.
2. Left carotid: Heavily calcified plaque noted proximal internal carotid artery, calcified plaque in the common carotid artery as well. Velocity profile consistent with 50-69% internal carotid artery stenosis.
3. Antegrade flow bilateral vertebral arteries.
CXR 04/16/2024:
1. MODERATE ACUTE INTERSTITIAL CARDIOGENIC PULMONARY EDEMA.
2. Normal heart size.
Subjective Dataa
Subjective Data
Date of Service:
Date of Service: April 19, 2024
Chief Complaint: Neurological Surgery Teacher Follow Up
Subjective:
Patient seen after returning from the OR. She is intubated on SIMV at 14/500/80%/5, with PIP: 26 cmH2O with VTe 457 mL and breathing at 14 breaths/min. IABP is at 1: 1 augmentation. Heart rate 80, BP via left axillary A-line: 116/27. PAP: 33/16
with CO/CI: 2.48/1.44, respectively. She is saturating 92%. She has mediastinal chest tubes x 2+ left/right pleural chest tubes. She is on Levophed at 6 mcg/min, insulin drip at 3 units/hr, fentanyl gtt at 50mcg/hr, Versed at 2 mg/hr and Precedex
at 0.7 mcg/kg/hr. Her chest was left open due to bleeding.
Review of Systems
General: Other (Unable to obtain given patient's acute clinical status (intubated/sedated))
Objective Data
Data Reviewed
Vital Signs / I&O / Oxygen:
Vital Signs
Temp Pulse Resp BP Pulse Ox
99.8 F 87 20 114/81 94
04/19/24 06:00 04/19/24 06:09 04/19/24 05:45 04/19/24 06:09 04/19/24 06:00
Intake and Output
04/18/24 04/19/24 04/20/24
06:59 06:59 06:59
Intake Total 336.5 / 336.5 1248.9 / 1248.9
Output Total 2049 / 2049 1735 / 1735
Balance -1713.5 / -1713.5 -486.1 / -486.1
SaO2 94
Nasal Cannula flow liters per 2
minute
Physical Exam
General: Respiratory Distress (negative), Chills (negative), Sweats (negative) and Other (open chest covered with open chest dressing)
HEENT: Normocephalic and Anicteric
Cardiovascular: S1-S2 and Peripheral Edema (negative)
Respiratory: Wheeze (negative), Crackles (negative), Rhonchi (negative), Non-Labored Respirations, ET Tube (Mechanical breath sounds heard bilaterally) and Chest Tube (Mediastinal chest tubes x 2+ left/right pleural chest tubes)
GI: Soft, Non Distended, Non Tender and Normal Bowel Sounds
Neurology: Tremors (negative) and Other (Sedated)
Skin: Warm, Dry, Cyanosis (negative) and Jaundice (negative)
Labs/Micro/Reports
Lab Data
04/19/24 02:55
04/19/24 02:55
Laboratory Results
04/18/24 04/18/24 04/18/24
10:05 14:25 15:51
PT 14.2
INR 1.09
APTT 50.7 H 25.3
pH 7.30 L
pCO2 39 H
pO2 94
HCO3 19.2 L
O2 Delivery Level
04/18/24 04/19/24
20:06 02:55
PT
INR
APTT 98.8 H 171.4 H*
pH 7.41
pCO2 35
pO2 88
HCO3 22.2
O2 Delivery Level
Microbiology
04/17/24 03:06 Urine Urine Culture - Final
Klebsiella aerogenes
--- NOTE | 2024-04-19 17:53 | W.IMMPOSTOP ---
Addendum entered and electronically signed by Ugo Syed MD 04/19/24 18:41:
[id number]
Original Note:
Surgical Immed Post Op Note
-
CARDIAC SURGERY OPERATIVE NOTE:
Preoperative Dx:
NSTEMI w/ severe LM CAD w/ hypotension during index cardiac catheterization w/ engagement of LM
Iljynbrf-px-vrqvyr aortic stenosis (53/29; CARMEN 0.5), trace AI
Moderate mitral regurgitation/mitral stenosis (P/M: 13.2/6)
Cardiogenic shock requiring preoperative IABP
Recent retroperitoneal hemorrhage w/ marked hemodynamic instability requiring covered stent; IABP replacement; transfusion
LBBB
Severe PVD/aortc arch calcifications
B/L CAD (50-69% ICA stenosis B/L; antegrade vertebral flow)
IDDM
HTN/HChol
GERD
Chronic loose stools following partial colectomy for ischemic colitis
Postoperative Dx:
Same
Post-CPB coagulopathy necessitating open chest dressing
Procedures:
1) Median sternotomy
2) Endoscopic harvest/prep of RLE GSV
3) CABG x 3 (KEYLA to LAD, GSV to D, GSV to LPDA)
4) ELAA
5) AVR (#21 Inspiris Resilia)
6) MVR (#27Mitris Resilia)
7) Open chest dressing
Surgeon:
Ugo Syed M.D.
Assistants:
Rhys RajanASinan-Rahat.; endoscopic harvest/prep of RLE GSV
Katie Persaud.-Rahat; staffing assistant
Katie Gutierrez.Alice; staffing assistant
Perfusion:
Chitra Parker CSinanCSinanP. and Agnieszka PhelanPSinan
XC: 268min, CPB: 337min
Implants:
Inspiris Resilia AVR; 21mm; SN [id number]; Model [id number]
Mitris Resilia MVR; 27mm; SN [id number]; Model [id number]
AtriClip 45mm; LOT [id number]
Epicardial V-wires x 2
CT x 4
Open chest dressing (3 - vaginal packing strips; surgical towel; straight plate x 1 w/ 2 - 10mm screws)
Complications:
Currently pacer dependent
Post-CPB coagulopathy requiring open chest dressing
Condition:
Guarded to CVICU
--- NOTE | 2024-04-19 18:10 | PTCARENOTE ---
Addendum entered by Merly Dubose RN 04/19/24 19:40:
Bloody secretions via ETT
Addendum entered by Merly Dubose RN 04/19/24 19:34:
Gtts on arrival: Epi @4, Precedex @0.5, Insulin @1.
Original Note:
Pt received from CVOR at 1810. Pt intubated and sedated on precedex gtt. Intubated with 8.0 ETT 20cm at the lip. SIMV 60% 14 500 5/5. No breaths over the vent. Lungs clear anteriorly. Mediastinal chest tubes x2 y-sited 1 atrium draining red fluid.
Continuous +1 air leak. Significant drainage, CT PA aware. Right and left pleural chest tubes y-sited to 1 atrium to -20cm suction draining red fluid. Continuous +1 air leak. Significant drainage, CT PA aware. 100% v-paced via epicardial v-wire set
to 80/15/2. Heart tones muffled. IABP to left groin 1:1 CT PA aware of 50s/10s (59). MAX augmentation. Bilateral radial and DPPT pulses unable to palpable. Present via doppler. CI 1.44 PA [id number]. CVP 8. Abdomen soft, round. Hypoactive BS.
Olmos draining inadequate amounts of dark brown/gastelum colored urine. CT PA aware. Open chest with Ioban intact. Emergent screw van driver helper at bedside taped on white board. Chest tube dressing CDI. Right groin puncture site covered with gauze-mod. sang.
drainage. Right SVG harvest site approximated with skin glue, ADIS. No RAYSHAWN-CT PA aware. Right IJ cordis and swan floated to 40cm. Left axillary roscoe intact. Right wrist 22g PIV. Right fem venous sheath. Left fem art line and IABP intact. See MAR for
medication administration. See worklist for complete nursing assessment. Post op EKG, labs, and CXR completed.
[2024-04-19 18:19] LABS: Glucose - Point of Care 217 mg/dl (70-99)
[2024-04-19 18:29] LABS: Mixed Venous O2 Saturation 69.5 %
[2024-04-19 18:32] LABS: B.E. -9.7 mmol/L; HCO3 17.6 mmol/L (21-28); Ionized Calcium 1.09 mMOL/L (1.15-1.33); O2 Saturation % 97.3 % (94-98); PCO2 43 mmHg (32-35); PO2 79 mmHg (83-108); Potassium 4.1 mMOL/L (3.5-5.1); Sodium 141 mMOL/L (136-145); pH 7.22 (7.35-7.45)
[2024-04-19 18:38] LABS: Hemoglobin 10.6 g/dL (12.0-16.0)
[2024-04-19 18:39] LABS: INR 2.45; PT 26.4 Sec (11.4-14.6)
[2024-04-19 18:45] LABS: Blood Urea Nitrogen 35 mg/dl (7-17); Estimated Creatinine Clearance 32 ml/min; Glucose 206 mg/dl (70-99); Magnesium 4.1 mg/dl (1.6-2.3)
[2024-04-19] MEDS: SODIUM BICARBONATE 50 MEQ IV ×5 (18:45→23:24)
[2024-04-19] MEDS: NSS 500 IV (18:51)
[2024-04-19] MEDS: ANCEF 10 IV ×2 (18:51)
[2024-04-19] MEDS: LIPITOR PO (18:52)
[2024-04-19] MEDS: SUBLIMAZE 75 MCG IV (18:57)
[2024-04-19] MEDS: SUBLIMAZE 100 IV (18:58)
[2024-04-19 19:01] LABS: Platelet Count 43 10^3/uL (130-400)
[2024-04-19 19:08] LABS: Glucose - Point of Care 207 mg/dl (70-99)
[2024-04-19] MEDS: VERSED 50 IV (19:27)
--- NOTE | 2024-04-19 20:00 | PTCARENOTE ---
Assumed care of the patient at 1900. Sedated on precedex 0.7 mcgs, ETT size 8, 20 at the R lip. 100% V Paced on monitor; pressure labile, epicardial V-wires present w/ temporary pacemaker settings 80/15/2. Pulses heard with doppler. IABP in place
through L groin, 1:1, ECG trigger, max augmentation. Midsternal chest open with sterile towel and ioban dressing. Lungs clear, dim at the bases; Ventilator settings SIMV 14/500/5/5 FiO2 80%; CTx4 to -20 cm wall suction draining sanguenous drainage -
air leak noted; no tidaling, or crepitus; Hypoactive BS; Olmos catheter in place draining cloudy, purple urine. R groin puncture site intact, sanguenous drainage on the gauze, dressing changed, R SVG site sutures intact ADIS; A-line in left axillary
artery - line zeroed and level; Slic/[place] present in right Cordis at 40; PIVx1 in R wrist; Levo/insulin/precedex/ infusing; Fentanyl and midazolam added, see worklist for titration details.
[2024-04-19] MEDS: ROCEPHIN 1000 MG IV (20:05)
[2024-04-19] MEDS: STERILE WATER FOR INJECTION 10 ML IV (20:06)
[2024-04-19 20:08] LABS: Glucose - Point of Care 143 mg/dl (70-99)
[2024-04-19] MEDS: CALCIUM CHLORIDE 10% SYRINGE 50 MG IV (20:40)
[2024-04-19] MEDS: CALCIUM CHLORIDE 10% SYRINGE 50 ML IV (20:40)
[2024-04-19 20:47] LABS: B.E. -2.9 mmol/L; HCO3 21.9 mmol/L (21-28); Ionized Calcium 0.94 mMOL/L (1.15-1.33); O2 Saturation % 98.8 % (94-98); PCO2 37 mmHg (32-35); PO2 97 mmHg (83-108); pH 7.38 (7.35-7.45)
[2024-04-19 20:53] LABS: Mixed Venous O2 Saturation 41.3 %
[2024-04-19 20:59] LABS: Hematocrit 25.2 % (37.0-47.0); Hemoglobin 9.2 g/dL (12.0-16.0); Mean Corp Hgb Conc. 36.5 g/dL (33.0-37.0); Mean Corpuscular Hgb 30.8 pg (27.0-31.0); Mean Corpuscular Volume 84.3 fL (81.0-99.0); Mean Platelet Volume 9.6 fL (7.4-10.4); Platelet Count 80 10^3/uL (130-400); Red Blood Cell Count 2.99 10^6/uL (4.20-5.40); Red Cell Dist. Width 13.9 % (11.5-14.5); White Blood Cell Count 12.2 10^3/uL (4.8-10.8)
[2024-04-19 21:00] LABS: Glucose - Point of Care 150 mg/dl (70-99)
[2024-04-19 21:12] LABS: APTT 43.5 Sec (23.4-35.0); INR 2.06; Lactic Acid 8.6 mmol/L (0.7-2.0)
[2024-04-19 22:10] LABS: Glucose - Point of Care 141 mg/dl (70-99)
[2024-04-19 22:59] LABS: B.E. -3.8 mmol/L; HCO3 19.5 mmol/L (21-28); Ionized Calcium 1.16 mMOL/L (1.15-1.33); PCO2 28 mmHg (32-35); PO2 202 mmHg (83-108); Potassium 5.4 mMOL/L (3.5-5.1); pH 7.45 (7.35-7.45)
--- NOTE | 2024-04-19 23:00 | PTCARENOTE ---
Patient received 2 units of FFP and 1 units of platelets. 1 amp of bicarb given. UOP heavily diminished from 10-8-5-5 (see worklist I/O). CBC showed approximately 1 g of blood loss of unclear etiology as well as thrombocytopenia. Some oozing from R
chest ioban, reinforced with tegaderm and gauze per PA - otherwise no overt signs of bleeding noted from surgical/procedural sites. Patient increasingly hypotensive despite Levo titration, PA aware. Epinephrine restarted at 2mcgs. 2 units FFP
pending.
[2024-04-19] MEDS: LEVOPHED 250 IV (23:02)
[2024-04-19 23:03] LABS: Glucose - Point of Care 117 mg/dl (70-99)
[2024-04-19 23:06] LABS: Hematocrit 21.8 % (37.0-47.0); Mean Corp Hgb Conc. 36.7 g/dL (33.0-37.0); Mean Corpuscular Hgb 30.7 pg (27.0-31.0); Mean Corpuscular Volume 83.5 fL (81.0-99.0); Mean Platelet Volume 9.8 fL (7.4-10.4); Platelet Count 65 10^3/uL (130-400); Red Blood Cell Count 2.61 10^6/uL (4.20-5.40); Red Cell Dist. Width 14.2 % (11.5-14.5); White Blood Cell Count 10.3 10^3/uL (4.8-10.8)
[2024-04-19 23:13] LABS: INR 1.84; PT 21.1 Sec (11.4-14.6)
[2024-04-19 23:18] LABS: Blood Urea Nitrogen 36 mg/dl (7-17); Calcium 9.3 mg/dl (8.4-10.2); Carbon Dioxide 21 mmol/L (22-30); Chloride 106 mmol/L (98-107); Estimated Creatinine Clearance 26 ml/min; Glucose 130 mg/dl (70-99); Magnesium 4.1 mg/dl (1.6-2.3); Sodium 147 mmol/L (135-145)
[2024-04-19] MEDS: CALCIUM CHLORIDE 10% SYRINGE 500 MG IV ×2 (23:21→23:59)
--- NOTE | 2024-04-20 00:27 | PTCARENOTE ---
Patient unstable. PA aware and at bedside to assess. Multiple units of FFP, PLT, 1 u PLT & PRBCs pending. Patient remains intubated/sedated, vent settings adjusted from SIMV to A/C. Skin mottled, Bradly Hugger reinitiated for hypothermia, pupils 6 mm
nonreactive to light.
[2024-04-20 00:55] LABS: B.E. -15.5 mmol/L; Ionized Calcium 0.99 mMOL/L (1.15-1.33); O2 Saturation % 99.1 % (94-98); PCO2 21 mmHg (32-35); PO2 118 mmHg (83-108); pH 7.28 (7.35-7.45)
[2024-04-20 01:02] LABS: HCO3 9.9 mmol/L (21-28); Potassium 7.5 mMOL/L (3.5-5.1)
[2024-04-20] MEDS: DEXTROSE 50% SYRINGE 25 GRAMS IV (01:04)
[2024-04-20] MEDS: NOVOLIN R 0.1 UNITS IV (01:05)
[2024-04-20] MEDS: SODIUM BICARBONATE 50 MEQ IV ×2 (01:06→01:10)
[2024-04-20] MEDS: CALCIUM CHLORIDE 10% SYRINGE 1000 MG IV (01:07)
[2024-04-20 01:25] LABS: LDH 1180 U/L (120-246)
[2024-04-20 01:45] LABS: B.E. 12.3 mmol/L; HCO3 39.3 mmol/L (21-28); O2 Saturation % 70.1 % (94-98); pH 7.31 (7.35-7.45)
[2024-04-20 01:47] LABS: Ionized Calcium 2.09 mMOL/L (1.15-1.33); PCO2 78 mmHg (32-35); PO2 39 mmHg (83-108); Potassium 6.7 mMOL/L (3.5-5.1); Sodium 167 mMOL/L (136-145)
--- NOTE | 2024-04-20 02:04 | W.PN.UPDATE ---
Addendum entered and electronically signed by Ugo Syed MD 04/20/24 02:58:
UPDATE:
I have spoken with Mrs. Souza's brother (Toribio: [phone]) and son (Naveen: ( Alma Rosa) [phone]; [phone]).
Original Note:
Update Note
Progress Note Update
CARDIAC SURGERY ATTENDING:
Mrs. Rosalinda Souza had been making reasonable progress despite being critically ill following CABG x 3/AVR/MVR/ELAA. Her procedure was complicated by coagulopathy necessitating open chest dressing and pacer dependence. Both her valves were
functioning well and her bypass grafts all had good flow on transit time ultrasound assessment. Her biventricular function was reasonable on IABP, inotropic, and vasopressor support. Intraoperatively she had required 5 units of packed red blood
cells and 2 units of platelets. Immediate postoperatively she received an additional 3 packs of platelets, 4 units of FFP, and 1 unit of packed red blood cells.
The patient's hemodynamics were somewhat variable, but had been initially responsive to ongoing therapy. Her epinephrine had been weaned to off. Levophed requirements ranged between 5 and 12 for the majority of her early postoperative course.
Chest tube output had slowed (5-10/hr). Patient's urine output had been low, but reasonable with ~25 to 40/h of urine initially. Her immediate postoperative CXR was unremarkable w/ no significant effusions.
At approximately 10 PM, the patient had an acute decrease in her urine output to 5 to 10 cc/h. Repeat laboratory assessment demonstrated hyperkalemia (K 7.5). She was given appropriate temporizing measures for this hyperkalemia. Unfortunately,
she subsequently lost pacing capture with no sustainable underlying intrinsic rhythm. She became profoundly bradycardic and hypotensive. Aggressive ACLS was instituted. Unfortunately, the patient was unable to achieve ROSC. I was contacted and
arrived to bedside. By that time she had been asystolic for approximately 10-15min. There was no evidence of tamponade or other correctable causes. Resuscitative efforts were stopped. TOD 1:55 AM on 04/20/2024. I attempted to contact the
patient's son, but as of the time of this dictation have been unsuccessful. I will continue to attempt to reach family.
Ugo Syed M.D.
--- NOTE | 2024-04-20 03:47 | PTCARENOTE ---
Patient increasingly unstable. No urine output after 0000. Levophed maxed at 30. Epi increased to 4 mcg/min. No significant change in pressures on arterial reading or IABP. Patient went into [facility] at 0057. Lab results revealed a K of 7.5. PA at
bedside for emergency management, ordered D50 IVP and 10u of insulin for correction. Pacer pads placed as backup. Medications administered with times as follows:
0112 Bicarb - patient pacing at 40 bpm
0117 Phenylephrine hung and started @ 2 mcgs
0120 Epinephrine 1 mg IVP administered
0121 CaCl IVP
0122 Bicarb
0123 Chest compressions initiated by PA
0128 Vfib on the monitor
0130 CaCl IVP
0131 Bicarb
0133 Epinephrine 1 mg IVP
0134 IABP placed on standby to assess if the patient had any intrinsic cardiac activity
0144 Bicarb, increased phenylephrine to 200 mcgs
0145 Epinephrine 1 mg IVP
0146 CaCl
0149 Patient determined to be in asystole, no pulsatile waveforms
0155 Dr. Syed at bedside pronounced TOD
--- NOTE | 2024-04-20 06:44 | PTCARENOTE ---
Family at bedside for a few hours, questions encouraged and answered. Post mortem care performed on the patient, CT x4 removed, PIV pulled, and car catheter pulled. R femoral venous sheath, L femoral IABP catheter, and RIJ cordis remain. Patient
transferred to [facility].
[2024-04-20 23:23] LABS: Anti-Thrombin III Activity 54 % (76-128)
[2024-04-22 08:40] LABS: ACT+ - POC > 1003 Seconds (82-134)
[2024-04-22 08:40] LABS: ACT+ - POC > 1003 Seconds (82-134)
[2024-04-22 08:40] LABS: ACT+ - POC > 1003 Seconds (82-134)
[2024-04-22 08:40] LABS: ACT+ - POC > 1003 Seconds (82-134)
[2024-04-22 11:33] LABS: ACT+ - POC 164 Seconds (82-134)
[2024-04-22 11:33] LABS: ACT+ - POC 849 Seconds (82-134)
== END 2024-04-20 06:03 | disposition expired | DRG 212 ==
LOC: CVICU 01:15
PROVIDERS: Anesthesiology; Clinical Nurse Specialist Acute Care; Internal Medicine Interventional Cardiology; Physician Assistant; Physician Assistant Medical; Surgery Vascular Surgery; ADMITTING PHYSICIAN Nuclear Medicine Nuclear Cardiology; ATTENDING PHYSICIAN Thoracic Surgery (Cardiothoracic Vascular Surgery); CONSULT PHYSICIAN Internal Medicine Critical Care Medicine; EMERGENCY PHYSICIAN Student in an Organized Health Care Education/Training Program; FAMILY PHYSICIAN Family Medicine; OTHER PHYSICIAN Hospitalist; OTHER PHYSICIAN Student in an Organized Health Care Education/Training Program; OTHER PHYSICIAN Thoracic Surgery (Cardiothoracic Vascular Surgery)
PROC: 03HY32Z Insertion of Monitoring Device into Upper Artery, Percutaneous Approach (ICD-10-PCS; 2024-04-17)
PROC: B2111ZZ Fluoroscopy of Multiple Coronary Arteries using Low Osmolar Contrast (ICD-10-PCS; 2024-04-17)
PROC: B2151ZZ Fluoroscopy of Left Heart using Low Osmolar Contrast (ICD-10-PCS; 2024-04-17)
PROC: 5A02210 Assistance with Cardiac Output using Balloon Pump, Continuous (ICD-10-PCS; 2024-04-17)
PROC: 4A023N7 Measurement of Cardiac Sampling and Pressure, Left Heart, Percutaneous Approach (ICD-10-PCS; 2024-04-17)
PROC: 30233R1 Transfusion of Nonautologous Platelets into Peripheral Vein, Percutaneous Approach (ICD-10-PCS; 2024-04-18)
PROC: B41C1ZZ Fluoroscopy of Pelvic Arteries using Low Osmolar Contrast (ICD-10-PCS; 2024-04-18)
PROC: 047L3DZ Dilation of Left Femoral Artery with Intraluminal Device, Percutaneous Approach (ICD-10-PCS; 2024-04-18)
PROC: B41F1ZZ Fluoroscopy of Right Lower Extremity Arteries using Low Osmolar Contrast (ICD-10-PCS; 2024-04-18)
PROC: 30233N1 Transfusion of Nonautologous Red Blood Cells into Peripheral Vein, Percutaneous Approach (ICD-10-PCS; 2024-04-18)
PROC: B4101ZZ Fluoroscopy of Abdominal Aorta using Low Osmolar Contrast (ICD-10-PCS; 2024-04-18)
PROC: 06BP4ZZ Excision of Right Saphenous Vein, Percutaneous Endoscopic Approach (ICD-10-PCS; 2024-04-19)
PROC: 02RG08Z Replacement of Mitral Valve with Zooplastic Tissue, Open Approach (ICD-10-PCS; 2024-04-19)
PROC: 30233K1 Transfusion of Nonautologous Frozen Plasma into Peripheral Vein, Percutaneous Approach (ICD-10-PCS; 2024-04-19)
PROC: B24BZZ4 Ultrasonography of Heart with Aorta, Transesophageal (ICD-10-PCS; 2024-04-19)
PROC: 02RF08Z Replacement of Aortic Valve with Zooplastic Tissue, Open Approach (ICD-10-PCS; 2024-04-19)
PROC: 02100ZC Bypass Coronary Artery, One Artery from Thoracic Artery, Open Approach (ICD-10-PCS; 2024-04-19)
PROC: 021109W Bypass Coronary Artery, Two Arteries from Aorta with Autologous Venous Tissue, Open Approach (ICD-10-PCS; 2024-04-19)
PROC: 02L70CK Occlusion of Left Atrial Appendage with Extraluminal Device, Open Approach (ICD-10-PCS; 2024-04-19)
PROC: 5A1221Z Performance of Cardiac Output, Continuous (ICD-10-PCS; 2024-04-19)
DX: I21.4 Non-ST elevation (NSTEMI) myocardial infarction (principal); I50.31 Acute diastolic (congestive) heart failure; K68.3 Retroperitoneal hematoma; T81.19XA Other postprocedural shock, initial encounter; I13.0 Hypertensive heart and chronic kidney disease with heart failure and stage 1 through stage 4 chronic kidney disease, or unspecified chronic kidney disease; N18.4 Chronic kidney disease, stage 4 (severe); T81.718A Complication of other artery following a procedure, not elsewhere classified, initial encounter; K91.871 Postprocedural hematoma of a digestive system organ or structure following other procedure; N39.0 Urinary tract infection, site not specified; E87.20 Acidosis, unspecified; I42.2 Other hypertrophic cardiomyopathy; D68.8 Other specified coagulation defects; D62 Acute posthemorrhagic anemia; I25.10 Atherosclerotic heart disease of native coronary artery without angina pectoris; I72.4 Aneurysm of artery of lower extremity; Y84.0 Cardiac catheterization as the cause of abnormal reaction of the patient, or of later complication, without mention of misadventure at the time of the procedure; K21.9 Gastro-esophageal reflux disease without esophagitis; E78.00 Pure hypercholesterolemia, unspecified; I44.7 Left bundle-branch block, unspecified; G47.33 Obstructive sleep apnea (adult) (pediatric); I08.0 Rheumatic disorders of both mitral and aortic valves; I65.23 Occlusion and stenosis of bilateral carotid arteries; E11.65 Type 2 diabetes mellitus with hyperglycemia; D69.59 Other secondary thrombocytopenia; R57.0 Cardiogenic shock; F41.9 Anxiety disorder, unspecified; F32.A Depression, unspecified; M48.061 Spinal stenosis, lumbar region without neurogenic claudication; M81.0 Age-related osteoporosis without current pathological fracture; D50.9 Iron deficiency anemia, unspecified; N39.3 Stress incontinence (female) (male); K22.70 Barrett's esophagus without dysplasia; M54.16 Radiculopathy, lumbar region; E11.22 Type 2 diabetes mellitus with diabetic chronic kidney disease; B96.20 Unspecified Escherichia coli [E. coli] as the cause of diseases classified elsewhere; K58.9 Irritable bowel syndrome, unspecified; E88.09 Other disorders of plasma-protein metabolism, not elsewhere classified; E87.5 Hyperkalemia; I25.2 Old myocardial infarction; Z79.82 Long term (current) use of aspirin; Z79.4 Long term (current) use of insulin; Z79.899 Other long term (current) drug therapy; Z82.49 Family history of ischemic heart disease and other diseases of the circulatory system; Z87.19 Personal history of other diseases of the digestive system; Z87.891 Personal history of nicotine dependence; Z90.49 Acquired absence of other specified parts of digestive tract
CPT/HCPCS: 88305; 88311; 93308; 33967; 37226; 71045; 80048; 80053; 80061; 81003; 81015; 82248; 82330; 82565; 82805; 82810; 82947; 82962; 83036; 83605; 83615; 83735; 83880; 84132; 84302; 84484; 84520; 85014; 85018; 85025; 85027; 85049; 85300; 85610; 85730; 86850; 86900; 86901; 86920; 87077; 87086; 87186; 93005; 93306; 93312; 93320; 93321; 93325; 93458; 93880; 94002; 94003; 99291; C1769; C1874; C1894; P9016; P9047; P9059; P9073; Q9967